=== PATIENT | male | born 1955 | race Caucasian/White ===

== ENCOUNTER → 2017-09-01 08:37 | Outpatient (CLI) | payer OTHER, SELFPAY ==
[2017-09-01 08:43] LABS: Bacteria 0 SEEN /hpf (None Seen); Mucous, Urine 0 SEEN /hpf (<or=2+)
[2017-09-01 10:07] LABS: Absolute Lymphocyte Count 1.56 X10^3/ul (0.83-4.51); Absolute Neutrophil Count 2.9 X10^3/uL (2.0-7.7); Basophil# 0.02 X10^3/uL; Basophil% 0.4 % (0-1); Eosinophil# 0.25 X10^3/uL; Eosinophils% 4.5 % (0-5); Hematocrit 45.4 % (40-54); Hemoglobin 15.1 g/dl (13.0-16.5); Lymphocyte # 1.56 X10^3/ul (4.0); Lymphocyte % 28.2 % (19-41); Mean Corp Hgb Conc 33.3 g/gl (32-36); Mean Corpuscular Volume 90.3 fL (80-94); Mean Platelet Vol. 10.3 fl (6.2-12.0); Monocyte# 0.81 X10^3/uL; Monocyte% 14.6 % (0-10); Neutrophil # 2.89 X10^3/uL (2.7-7.7); Neutrophil % 52.1 % (47-70); Platelet Count 228 K/mm3 (150-450); RBC Distribution Width CV 12.7 % (11.6-14.6); RBC Distribution Width SD 41.7 fl (35.1-43.9); Red Blood Count 5.03 M/mm3 (4.6-6.2); White Blood Count 5.5 K/mm3 (4.4-11.0)
[2017-09-01 10:08] LABS: POSITIVE COUNT NO; POSITIVE DIFFERENTIAL NO; POSITIVE MORPHOLOGY NO
[2017-09-01 10:13] LABS: Color, Urine Yellow (Yellow); Glucose, Dipstick Normal (Normal); Ketone-Dipstick Negative (Negative); Leukocyte Esterase-Dipstick 25 /ul (Negative); Nitrite-Dipstick Negative (Negative); Occult Blood-Urine 25 /ul (Negative); Protein-Dipstick Negative (Negative); Urine Bilirubin Dipstick Negative (Negative); Urine Clarity Clear (Clear); Urine Urobilinogen Normal (Normal)
[2017-09-01 10:20] LABS: Red Blood Cells-Urine 0-5 SEEN /hpf (0-5); Squamous Epithelial Cells - UA 0-5 SEEN /hpf (0-5); White Blood Cells 0-5 SEEN /hpf (0-5)
[2017-09-01 10:46] LABS: AST(SGOT) 35 U/L (15-37); Alanine Aminotransfer ALT/SGPT 49 U/L (16-61); Albumin, Serum 3.7 g/dL (3.2-5.0); Alkaline Phosphatase 80 U/L (45-117); Anion Gap 7 (5-15); BUN 20 mg/dL (7-18); BUN/Creat Ratio 16.7 RATIO (10-20); Calcium,Total 8.5 mg/dL (8.5-10.1); Chloride 106 mmol/L (98-107); Cholesterol 209 mg/dL (200); EST Glomerular Filtration Rate 66 mL/min (>60); Est Glom Filt Rate - Afr Amer 79 mL/min (>60); Globulin 3.8 g/dL (2.2-4.2); Glucose 111 mg/dL (74-106); High Density Lipoprotein 43 mg/dL; PSA,Total - Annual Screen 2.06 ng/mL (0.00-4.00); Protein, Total 7.5 g/dL (6.4-8.2); Sodium Level 140 mmol/L (136-145); Thyroid Stim Hormone (TSH) 1.55 uIU/mL (0.358-3.74); Triglycerides 74 mg/dL; Very Low Density Lipoprotein 15 mg/dL (5-40)
[2017-09-01 16:23] LABS: Hemoglobin A1c 5.3 % (4.2-6.3)
== END ==
PROVIDERS: Family Provider Family Medicine; PCP Family Medicine; Visit Provider Family Medicine
DX: Z00.00 Encounter for general adult medical examination without abnormal findings (principal); Z12.5 Encounter for screening for malignant neoplasm of prostate
CPT/HCPCS: 36415; 80053; 80061; 81001; 83036; 84153; 84443; 85025; G0103

== ENCOUNTER → 2017-11-02 08:19 | Outpatient (CLI) | payer OTHER, SELFPAY ==
--- NOTE | 2017-11-02 08:28 | RAD_ITS ---
STUDY: X-RAY - RIGHT HAND REASON FOR EXAM: Male, 62 years old. Pain. No known injury. TECHNIQUE: 3 view(s) of the hand. COMPARISON: None. FINDINGS: Normal radiocarpal articulation. Normal distal radioulnar joint. Normal visualized carpal bones. Normal carpal articulations Normal carpometacarpal articulation of the thumb. Normal second through fifth carpometacarpal joints. Normal metacarpi. Normal metacarpophalangeal joint of the thumb. Normal interphalangeal joint of the thumb. Normal proximal and distal phalanges of the thumb. Normal metacarpophalangeal joints of the second through fifth fingers. Normal proximal and distal interphalangeal joints of the second through fifth fingers. Normal phalanges of the second through fifth fingers. Soft tissue swelling. RAD/Hand Min 3 Views IMPRESSION: Soft tissue swelling. Electronically Signed: Juan Miguel Carr MD at 15:55 EDT Tel [phone], Service support ,
--- NOTE | 2017-11-02 08:28 | RAD_ITS ---
STUDY: X-RAY - LUMBAR SPINE REASON FOR EXAM: Male, 62 years old. Low back pain. TECHNIQUE: 5 view(s) of the lumbar spine were obtained including oblique views. COMPARISON: None FINDINGS: Normal lumbar lordosis. There is a mild dextroscoliosis of the lumbar spine. There is a normal alignment of the vertebrae. There is multilevel endplate spondylosis of the lumbar vertebrae. There is multi-level degenerative disc disease with multi-level disc space narrowing. The soft tissue structures are unremarkable. RAD/L/S Spine Min 4 Views IMPRESSION: Degenerative changes of the spine, as detailed above. Electronically Signed: Juan Miguel Carr MD at 16:02 EDT Tel [phone], Service support ,
--- NOTE | 2017-11-02 08:28 | RAD_ITS ---
STUDY: X-RAY - SACROILIAC JOINTS REASON FOR EXAM: Male, 62 years old. Low back pain. TECHNIQUE: 3 view(s) of the sacroiliac joints were obtained. COMPARISON: None. FINDINGS: Normal bilateral sacroiliac joints. Normal visualized sacral ala and sacrum. Normal visualized iliac bones. There are multiple calcified phleboliths. RAD/S-I Jts 3 or More Views IMPRESSION: Normal x-ray examination of the bilateral sacroiliac joints. Electronically Signed: Juan Miguel Carr MD at 15:55 EDT Tel [phone], Service support ,
--- NOTE | 2017-11-02 08:28 | RAD_ITS ---
STUDY: X-RAY - CERVICAL SPINE REASON FOR EXAM: Male, 62 years old. Chronic neck pain. TECHNIQUE: 5 view(s) of the cervical spine were obtained including oblique views. COMPARISON: None FINDINGS: Normal anterior atlantoaxial articulation. Normal odontoid process. Normal cervical lordosis. Disc space narrowing and spondylosis at the C5-C6 and C6-C7 levels. Normal visualized intervertebral neuroforamina. The soft tissue structures are unremarkable. RAD/Cerv Spine 4 or 5 Views IMPRESSION: Disc space narrowing and spondylosis at the C5-C6 and C6-C7 levels. Electronically Signed: Juan Miguel Carr MD at 16:01 EDT Tel [phone], Service support ,
== END ==
PROVIDERS: Family Provider Family Medicine; PCP Family Medicine; Visit Provider Family Medicine
DX: M79.643 Pain in unspecified hand (principal); M50.30 Other cervical disc degeneration, unspecified cervical region; M51.37 Other intervertebral disc degeneration, lumbosacral region
CPT/HCPCS: 72050; 72110; 72202; 73130

== ENCOUNTER → 2018-01-10 08:16 | Outpatient (CLI) | payer OTHER, SELFPAY ==
[2018-01-10 10:44] LABS: Cholesterol 226 mg/dL (200); High Density Lipoprotein 44 mg/dL; Triglycerides 56 mg/dL; Very Low Density Lipoprotein 11 mg/dL (5-40)
== END ==
PROVIDERS: Family Provider Family Medicine; PCP Family Medicine; Visit Provider Family Medicine
DX: E78.00 Pure hypercholesterolemia, unspecified (principal)
CPT/HCPCS: 36415; 80061

== ENCOUNTER → 2018-09-06 08:01 | Outpatient (CLI) | payer OTHER, SELFPAY ==
[2018-09-06 10:11] LABS: Absolute Lymphocyte Count 1.53 X10^3/ul (0.83-4.51); Absolute Neutrophil Count 3.1 X10^3/uL (2.0-7.7); Basophil# 0.04 X10^3/uL; Basophil% 0.7 % (0-1); Eosinophils% 3.6 % (0-5); Hematocrit 47.8 % (40-54); Hemoglobin 15.6 g/dl (13.0-16.5); Lymphocyte # 1.53 X10^3/ul (4.0); Lymphocyte % 27.3 % (19-41); Mean Corp Hgb Conc 32.6 g/gl (32-36); Mean Corpuscular Hgb 29.8 pg (27.0-32.0); Mean Corpuscular Volume 91.2 fL (80-94); Mean Platelet Vol. 10.5 fl (6.2-12.0); Monocyte# 0.68 X10^3/uL; Monocyte% 12.1 % (0-10); Neutrophil # 3.14 X10^3/uL (2.7-7.7); Neutrophil % 56.1 % (47-70); Platelet Count 255 K/mm3 (150-450); RBC Distribution Width CV 12.5 % (11.6-14.6); RBC Distribution Width SD 41.4 fl (35.1-43.9); Red Blood Count 5.24 M/mm3 (4.6-6.2); White Blood Count 5.6 K/mm3 (4.4-11.0)
[2018-09-06 10:13] LABS: POSITIVE COUNT NO; POSITIVE DIFFERENTIAL NO; POSITIVE MORPHOLOGY NO
[2018-09-06 10:56] LABS: ALB/GLOB Ratio 1.2 RATIO (0.9-2.4); AST(SGOT) 42 U/L (15-37); Alanine Aminotransfer ALT/SGPT 45 U/L (16-61); Albumin, Serum 4.1 g/dL (3.2-5.0); Alkaline Phosphatase 87 U/L (45-117); Anion Gap 7 (5-15); BUN 13 mg/dL (7-18); BUN/Creat Ratio 9.8 RATIO (10-20); Calcium,Total 8.9 mg/dL (8.5-10.1); Chloride 104 mmol/L (98-107); Cholesterol 231 mg/dL (200); Creatinine, Serum 1.33 mg/dL (0.70-1.30); EST Glomerular Filtration Rate 58 mL/min (>60); Est Glom Filt Rate - Afr Amer 70 mL/min (>60); Globulin 3.5 g/dL (2.2-4.2); Glucose 93 mg/dL (74-106); High Density Lipoprotein 48 mg/dL; PSA,Total - Annual Screen 3.89 ng/mL (0.00-4.00); Potassium 4.4 mmol/L (3.5-5.1); Protein, Total 7.6 g/dL (6.4-8.2); Sodium Level 140 mmol/L (136-145); Thyroid Stim Hormone (TSH) 1.51 uIU/mL (0.358-3.74); Triglycerides 63 mg/dL; Very Low Density Lipoprotein 13 mg/dL (5-40)
== END ==
PROVIDERS: Family Provider Family Medicine; PCP Family Medicine; Referring Provider Family Medicine; Visit Provider Family Medicine
DX: Z00.00 Encounter for general adult medical examination without abnormal findings (principal); Z12.5 Encounter for screening for malignant neoplasm of prostate
CPT/HCPCS: 36415; 80053; 80061; 84153; 84443; 85025; G0103

== ENCOUNTER → 2018-09-12 08:05 | Outpatient (CLI) | payer OTHER, SELFPAY ==
[2018-09-12 11:05] LABS: AST(SGOT) 57 U/L (15-37); Alanine Aminotransfer ALT/SGPT 45 U/L (16-61); Albumin, Serum 4.1 g/dL (3.2-5.0); Alkaline Phosphatase 90 U/L (45-117); Anion Gap 6 (5-15); BUN 14 mg/dL (7-18); BUN/Creat Ratio 11.4 RATIO (10-20); Bilirubin, Direct 0.22 mg/dL (0.00-0.30); Calcium,Total 8.6 mg/dL (8.5-10.1); Chloride 107 mmol/L (98-107); Creatinine, Serum 1.23 mg/dL (0.70-1.30); EST Glomerular Filtration Rate 64 mL/min (>60); Est Glom Filt Rate - Afr Amer 77 mL/min (>60); Globulin 3.2 g/dL (2.2-4.2); Glucose 85 mg/dL (74-106); Potassium 4.2 mmol/L (3.5-5.1); Protein, Total 7.3 g/dL (6.4-8.2); Sodium Level 140 mmol/L (136-145)
== END ==
PROVIDERS: Family Provider Family Medicine; PCP Family Medicine; Referring Provider Family Medicine; Visit Provider Family Medicine
DX: R94.4 Abnormal results of kidney function studies (principal)
CPT/HCPCS: 36415; 80048; 80076

== ENCOUNTER → 2019-09-07 08:56 | Outpatient (CLI) | payer SELFPAY ==
[2019-09-07 10:20] LABS: Anion Gap 3 (5-15); BUN 17 mg/dL (7-18); BUN/Creat Ratio 13.2 RATIO (10-20); Calcium,Total 9.1 mg/dL (8.5-10.1); Chloride 104 mmol/L (98-107); Creatinine, Serum 1.29 mg/dL (0.70-1.30); EST Glomerular Filtration Rate 60 mL/min (>60); Est Glom Filt Rate - Afr Amer 73 mL/min (>60); Glucose 96 mg/dL (74-106); Potassium 4.3 mmol/L (3.5-5.1); Sodium Level 137 mmol/L (136-145)
== END ==
PROVIDERS: PCP Family Medicine; Referring Provider Family Medicine; Visit Provider Family Medicine
DX: Z00.00 Encounter for general adult medical examination without abnormal findings (principal)
CPT/HCPCS: 36415; 80048

== ENCOUNTER → 2020-09-09 08:55 | Outpatient (CLI) | payer SELFPAY ==
[2020-09-09 10:34] LABS: AST(SGOT) 36 U/L (15-37); Alanine Aminotransfer ALT/SGPT 43 U/L (16-61); Albumin, Serum 3.8 g/dL (3.2-5.0); Alkaline Phosphatase 87 U/L (45-117); Anion Gap 4 (5-15); BUN 16 mg/dL (7-18); BUN/Creat Ratio 11.3 RATIO (10-20); Calcium,Total 9.1 mg/dL (8.5-10.1); Chloride 103 mmol/L (98-107); Cholesterol 233 mg/dL (200); Creatinine, Serum 1.42 mg/dL (0.70-1.30); EST Glomerular Filtration Rate 54 mL/min (>60); Est Glom Filt Rate - Afr Amer 65 mL/min (>60); Globulin 3.8 g/dL (2.2-4.2); Glucose 101 mg/dL (74-106); High Density Lipoprotein 47 mg/dL; Potassium 4.4 mmol/L (3.5-5.1); Protein, Total 7.6 g/dL (6.4-8.2); Sodium Level 138 mmol/L (136-145); Triglycerides 61 mg/dL; Very Low Density Lipoprotein 12 mg/dL (5-40)
[2020-09-09 10:39] LABS: Bilirubin, Direct 0.22 mg/dL (0.00-0.30); Indirect Bilirubin 0.78 mg/dL (0.00-1.00)
== END ==
PROVIDERS: PCP Family Medicine; Visit Provider Family Medicine
DX: E80.6 Other disorders of bilirubin metabolism (principal); E78.00 Pure hypercholesterolemia, unspecified
CPT/HCPCS: 36415; 80053; 80061; 82247; 82248

== ENCOUNTER → 2020-12-24 08:28 | Outpatient (CLI) | payer SELFPAY ==
[2020-12-24 10:29] LABS: AST(SGOT) 47 U/L (15-37); Alanine Aminotransfer ALT/SGPT 54 U/L (16-61); Albumin, Serum 3.9 g/dL (3.2-5.0); Alkaline Phosphatase 79 U/L (45-117); Anion Gap 4 (5-15); BUN 19 mg/dL (7-18); BUN/Creat Ratio 14.2 RATIO (10-20); Calcium,Total 8.9 mg/dL (8.5-10.1); Chloride 107 mmol/L (98-107); Creatinine, Serum 1.34 mg/dL (0.70-1.30); EST Glomerular Filtration Rate 57 mL/min (>60); Est Glom Filt Rate - Afr Amer 69 mL/min (>60); Globulin 3.8 g/dL (2.2-4.2); Glucose 92 mg/dL (74-106); Potassium 4.4 mmol/L (3.5-5.1); Protein, Total 7.7 g/dL (6.4-8.2); Sodium Level 138 mmol/L (136-145)
== END ==
PROVIDERS: PCP Family Medicine; Visit Provider Family Medicine
DX: R94.4 Abnormal results of kidney function studies (principal)
CPT/HCPCS: 36415; 80053

== ENCOUNTER → 2021-05-13 08:02 | Outpatient (CLI) | payer SELFPAY ==
[2021-05-13 10:43] LABS: Cholesterol 154 mg/dL (200); High Density Lipoprotein 42 mg/dL; Triglycerides 53 mg/dL; Very Low Density Lipoprotein 11 mg/dL (5-40)
== END ==
PROVIDERS: PCP Family Medicine; Referring Provider Family Medicine; Visit Provider Family Medicine
DX: E78.00 Pure hypercholesterolemia, unspecified (principal)
CPT/HCPCS: 36415; 80061

== ENCOUNTER 2021-09-10 09:15 | Outpatient (CLI) | payer SELFPAY ==
[2021-09-10 11:02] LABS: AST(SGOT) 37 U/L (15-37); Alanine Aminotransfer ALT/SGPT 49 U/L (16-61); Albumin, Serum 3.9 g/dL (3.2-5.0); Alkaline Phosphatase 83 U/L (45-117); Anion Gap 4 (5-15); BUN 16 mg/dL (7-18); BUN/Creat Ratio 11.1 RATIO (10-20); Calcium,Total 9.2 mg/dL (8.5-10.1); Chloride 106 mmol/L (98-107); Cholesterol 154 mg/dL (200); Creatinine, Serum 1.44 mg/dL (0.70-1.30); EST Glomerular Filtration Rate 53 mL/min (>60); Est Glom Filt Rate - Afr Amer 64 mL/min (>60); Globulin 3.8 g/dL (2.2-4.2); Glucose 105 mg/dL (74-106); High Density Lipoprotein 42 mg/dL; PSA,Total - Annual Screen 2.98 ng/mL (0.00-4.00); Potassium 4.5 mmol/L (3.5-5.1); Protein, Total 7.7 g/dL (6.4-8.2); Sodium Level 137 mmol/L (136-145); Triglycerides 64 mg/dL; Very Low Density Lipoprotein 13 mg/dL (5-40)
== END 2021-09-10 23:59 | disposition home or self-care (01) ==
LOC: MFPLAB 09:15
PROVIDERS: PCP Family Medicine; Referring Provider Family Medicine; Visit Provider Family Medicine
DX: E80.6 Other disorders of bilirubin metabolism (principal); E78.00 Pure hypercholesterolemia, unspecified; Z12.5 Encounter for screening for malignant neoplasm of prostate
CPT/HCPCS: 36415; 80048; 80061; 80076; 84153; G0103

== ENCOUNTER → 2022-03-10 | Outpatient (CLI) | payer SELFPAY ==
[2022-03-10 08:54] LABS: Mucous, Urine 0 SEEN /hpf (<or=2+)
[2022-03-10 10:27] LABS: Color, Urine Yellow (Yellow); Glucose, Dipstick Normal (Normal); Ketone-Dipstick 5 mg/dl (Negative); Leukocyte Esterase-Dipstick 25 /ul (Negative); Nitrite-Dipstick Negative (Negative); Occult Blood-Urine 10 /ul (Negative); Protein-Dipstick Negative (Negative); Urine Bilirubin Dipstick Negative (Negative); Urine Clarity Clear (Clear); Urine Urobilinogen 1 mg/dl (Normal)
[2022-03-10 10:37] LABS: Absolute Lymphocyte Count 1.65 X10^3/uL (0.83-4.51); Absolute Neutrophil Count 3.7 X10^3/uL (2.0-7.7); Basophil# 0.05 X10^3/uL; Basophil% 0.8 % (0-1); Eosinophil# 0.18 X10^3/uL; Eosinophils% 2.8 % (0-5); Hematocrit 43.7 % (40-54); Hemoglobin 14.1 g/dL (13.0-16.5); Lymphocyte # 1.65 X10^3/ul (0.83-4.51); Lymphocyte % 25.6 % (19-41); Mean Corp Hgb Conc 32.3 g/dL (32-36); Mean Corpuscular Hgb 29.9 pg (27.0-32.0); Mean Corpuscular Volume 92.8 fL (80-94); Mean Platelet Vol. 10.4 fl (6.2-12.0); Monocyte# 0.83 X10^3/uL; Monocyte% 12.9 % (0-10); NRBC Flagged by Analyzer 0 % (0-5); Neutrophil # 3.71 X10^3/uL (2.7-7.7); Neutrophil % 57.6 % (47-70); Platelet Count 218 K/mm3 (150-450); RBC Distribution Width CV 12.3 % (11.6-14.6); RBC Distribution Width SD 42.1 fl (35.1-43.9); Red Blood Count 4.71 M/mm3 (4.6-6.2); White Blood Count 6.4 K/mm3 (4.4-11.0)
[2022-03-10 10:38] LABS: Protein, Urine (Random) 18.2 mg/dL (<11.9); Protein:Creat Ratio 79 mg/g CRE (0-200)
[2022-03-10 10:41] LABS: Bacteria 1+ /hpf (None Seen); Red Blood Cells-Urine 0-5 SEEN /hpf (0-5); Squamous Epithelial Cells - UA 0-5 SEEN /hpf (0-5); White Blood Cells 0-5 SEEN /hpf (0-5)
[2022-03-10 11:00] LABS: PTHIN 42.9 pg/mL (18.4-80.1)
[2022-03-10 11:08] LABS: AST(SGOT) 36 U/L (15-37); Alanine Aminotransfer ALT/SGPT 41 U/L (16-61); Albumin, Serum 3.6 g/dL (3.2-5.0); Alkaline Phosphatase 72 U/L (45-117); Anion Gap 5 (5-15); BUN 17 mg/dL (7-18); BUN/Creat Ratio 13.7 RATIO (10-20); Calcium,Total 8.7 mg/dL (8.5-10.1); Chloride 107 mmol/L (98-107); Cholesterol 123 mg/dL (200); Creatinine, Serum 1.24 mg/dL (0.70-1.30); EST Glomerular Filtration Rate 62 mL/min (>60); Est Glom Filt Rate - Afr Amer 75 mL/min (>60); Globulin 3.5 g/dL (2.2-4.2); Glucose 100 mg/dL (74-106); High Density Lipoprotein 41 mg/dL; Protein, Total 7.1 g/dL (6.4-8.2); Sodium Level 140 mmol/L (136-145); Triglycerides 52 mg/dL; Very Low Density Lipoprotein 10 mg/dL (5-40)
== END | disposition home or self-care (01) ==
LOC: MFPLAB 08:48
PROVIDERS: PCP Family Medicine; Referring Provider Family Medicine; Visit Provider Family Medicine
DX: N18.30 Chronic kidney disease, stage 3 unspecified (principal); E78.00 Pure hypercholesterolemia, unspecified
CPT/HCPCS: 36415; 80053; 80061; 81001; 82570; 83970; 84100; 84156; 85025

== ENCOUNTER → 2022-07-13 | Outpatient (CLI) | payer SELFPAY ==
[2022-07-13 10:10] LABS: Absolute Lymphocyte Count 1.71 X10^3/uL (0.83-4.51); Absolute Neutrophil Count 3.7 X10^3/uL (2.0-7.7); Basophil# 0.05 X10^3/uL; Basophil% 0.8 % (0-1); Eosinophil# 0.19 X10^3/uL; Eosinophils% 2.9 % (0-5); Hematocrit 47.4 % (40-54); Hemoglobin 15.7 g/dL (13.0-16.5); Lymphocyte # 1.71 X10^3/ul (0.83-4.51); Lymphocyte % 26.3 % (19-41); Mean Corp Hgb Conc 33.1 g/dL (32-36); Mean Corpuscular Volume 90.6 fL (80-94); Mean Platelet Vol. 10.1 fl (6.2-12.0); Monocyte% 12.3 % (0-10); NRBC Flagged by Analyzer 0 % (0-5); Neutrophil # 3.73 X10^3/uL (2.7-7.7); Neutrophil % 57.4 % (47-70); Platelet Count 225 K/mm3 (150-450); RBC Distribution Width CV 12.2 % (11.6-14.6); RBC Distribution Width SD 40.4 fl (35.1-43.9); Red Blood Count 5.23 M/mm3 (4.6-6.2); White Blood Count 6.5 K/mm3 (4.4-11.0)
[2022-07-13 10:36] LABS: AST(SGOT) 36 U/L (15-37); Alanine Aminotransfer ALT/SGPT 48 U/L (16-61); Albumin, Serum 3.8 g/dL (3.2-5.0); Alkaline Phosphatase 73 U/L (45-117); Anion Gap 3 (5-15); BUN 17 mg/dL (7-18); Calcium,Total 9.1 mg/dL (8.5-10.1); Chloride 104 mmol/L (98-107); Cholesterol 152 mg/dL (200); Creatinine, Serum 1.31 mg/dL (0.70-1.30); EST Glomerular Filtration Rate 58 mL/min (>60); Est Glom Filt Rate - Afr Amer 71 mL/min (>60); Globulin 3.7 g/dL (2.2-4.2); Glucose 93 mg/dL (74-106); High Density Lipoprotein 47 mg/dL; Phosphorus 2.4 mg/dL (2.5-4.9); Potassium 4.4 mmol/L (3.5-5.1); Protein, Total 7.5 g/dL (6.4-8.2); Sodium Level 139 mmol/L (136-145); Triglycerides 64 mg/dL; Very Low Density Lipoprotein 13 mg/dL (5-40)
[2022-07-13 10:38] LABS: Vitamin D,25 Hydroxy 37.4 ng/mL
[2022-07-13 10:40] LABS: PTHIN 45.2 pg/mL (18.4-80.1)
== END | disposition home or self-care (01) ==
PROVIDERS: PCP Family Medicine; Referring Provider Family Medicine; Visit Provider Family Medicine
DX: N18.30 Chronic kidney disease, stage 3 unspecified (principal); E78.00 Pure hypercholesterolemia, unspecified
CPT/HCPCS: 36415; 80053; 80061; 82306; 83970; 84100; 85025

== ENCOUNTER 2022-10-19 02:47 | Emergency (ER) | payer MEDICARE, SELFPAY ==
[2022-10-19 02:48] VITALS: PULSE 65; RESP 16; TEMP 36.5; O2SAT 100; BMI 29.3
[2022-10-19 02:51] VITALS: BP 192/109; PULSE 60; RESP 16; TEMP 36.5; O2SAT 100
--- NOTE | 2022-10-19 03:18 | CT_ITS ---
INDICATION: ? Dissection EXAMINATION: CT CHEST, ABDOMEN AND PELVIS WITH CONTRAST - CTA Chest and CTA Abdomen and Pelvis W/ Contrast Injection (and W/O Contrast Images if performed) TECHNIQUE: Helically acquired axial images were obtained of the chest, abdomen, and pelvis with sagittal and coronal reconstructed images. Individualized dose optimization techniques were used for this CT. IV contrast dosage and agent: 100 mL of Isovue-370. Oral contrast: None. COMPARISON: None. FINDINGS: ---Chest: LUNGS, PLEURA AND LARGE AIRWAYS: No consolidation or edema. No pulmonary nodule. No pleural effusion. No pneumothorax. THYROID: Unremarkable. HEART AND PERICARDIUM: Heart is unremarkable. No pericardial effusion. No evidence of coronary artery calcification. MEDIASTINUM AND TARA: No mediastinal or hilar adenopathy. Esophagus is unremarkable. No hiatal hernia. VESSELS: No thoracic aortic aneurysm or dissection. No obvious central pulmonary embolism although this study was not performed with pulmonary embolism protocol. BONES: No acute abnormality. ---Abdomen/Pelvis: VESSELS: No abdominal aortic aneurysm or dissection. LIVER: No evidence of a mass. No intrahepatic or extrahepatic biliary duct dilation. GALLBLADDER: Calcified stones. No evidence of cholecystitis. PANCREAS: No focal solid or cystic mass. No evidence of pancreatitis. SPLEEN: Normal. ADRENAL GLANDS: Normal. KIDNEYS AND URETERS: No urinary tract stone. No hydronephrosis or hydroureter. No significant asymmetric perinephric stranding. Simple left renal cyst with no follow-up recommended. URINARY BLADDER: Unremarkable. BOWEL: No evidence of diverticulosis or diverticulitis. Appendix appears normal. No evidence of bowel obstruction. REPRODUCTIVE ORGANS: No evidence of a pelvic mass. PERITONEUM: No intraabdominal free fluid or free air. LYMPH NODES: No pathologically enlarged mesenteric or retroperitoneal lymph nodes. ABDOMINAL WALL: No abdominal or pelvic wall hernia. BONES: No acute abnormality. CT/CTA Chst, Abd, Pel W and/or WO IMPRESSION: 1. No thoracic or abdominal aortic aneurysm or dissection. 2. No evidence of acute cardiopulmonary disease. 3. No acute intra-abdominal abnormality. 4. Cholelithiasis with no evidence of cholecystitis. Electronically Signed: Woody Mccann DO at 4:10 EDT ,
[2022-10-19] MEDS: 0.9% Normal Saline 1,000 ML 999 ML IV (03:27)
[2022-10-19] MEDS: Morphine 4 MG/ML Syringe IV (03:29)
[2022-10-19] MEDS: Ondansetron 4 MG/2 ML Vial IV (03:29)
[2022-10-19 03:34] LABS: Absolute Lymphocyte Count 2.02 X10^3/uL (0.83-4.51); Absolute Neutrophil Count 6.1 X10^3/uL (2.0-7.7); Basophil# 0.07 X10^3/uL; Basophil% 0.7 % (0-1); Eosinophil# 0.25 X10^3/uL; Eosinophils% 2.6 % (0-5); Hematocrit 46.8 % (40-54); Hemoglobin 15.5 g/dL (13.0-16.5); Lymphocyte # 2.02 X10^3/ul (0.83-4.51); Lymphocyte % 21.3 % (19-41); Mean Corp Hgb Conc 33.1 g/dL (32-36); Mean Corpuscular Volume 90.7 fL (80-94); Mean Platelet Vol. 9.8 fl (6.2-12.0); Monocyte# 1.04 X10^3/uL; NRBC Flagged by Analyzer 0 % (0-5); Neutrophil # 6.07 X10^3/uL (2.7-7.7); Platelet Count 236 K/mm3 (150-450); RBC Distribution Width CV 11.9 % (11.6-14.6); RBC Distribution Width SD 39.8 fl (35.1-43.9); Red Blood Count 5.16 M/mm3 (4.6-6.2); White Blood Count 9.5 K/mm3 (4.4-11.0)
[2022-10-19 03:52] LABS: AST(SGOT) 34 U/L (15-37); Alanine Aminotransfer ALT/SGPT 45 U/L (16-61); Alkaline Phosphatase 80 U/L (45-117); Anion Gap 6 (5-15); BUN 20 mg/dL (7-18); BUN/Creat Ratio 15.2 RATIO (10-20); Bilirubin, Direct 0.26 mg/dL (0.00-0.30); Calcium,Total 9.2 mg/dL (8.5-10.1); Chloride 106 mmol/L (98-107); Creatinine, Serum 1.32 mg/dL (0.70-1.30); EST Glomerular Filtration Rate 58 mL/min (>60); Est Glom Filt Rate - Afr Amer 70 mL/min (>60); Estimated Creatinine Clearance 57.61 ml/min; Globulin 3.7 g/dL (2.2-4.2); Glucose 141 mg/dL (74-106); Lipase 52 U/L (13-75); Potassium 3.8 mmol/L (3.5-5.1); Protein, Total 7.7 g/dL (6.4-8.2); Sodium Level 138 mmol/L (136-145)
[2022-10-19 04:04] LABS: Lactic Acid 2.3 mmol/L (0.4-1.9)
[2022-10-19 04:04] LABS: Partial Thromboplast Time 28.5 Seconds (24.1-36.2)
--- NOTE | 2022-10-19 04:48 | EX.ED.DYSGE1 ---
HPI History of Present Illness Chief Complaint: Abd Pain Narrative Narrative: Patient is a 67-year-old male with past medical history of hyperlipidemia and osteoarthritis. He states that he noticed some pain in his midepigastric abdomen beginning around 11 PM. He states he has had pain like this before but it has resolved after 30 minutes to an hour and this pain seems to worsen and has persisted for multiple hours. He states he is slightly nauseous secondary to the pain but denies any vomiting. He denies any fevers or chills diarrhea or dysuria or hematuria. He denies any history of pancreatic or gallbladder issues and states that there is no history of alcohol abuse. However as he has had persistent pain that is not resolving like it has in the past he presents for evaluation [facility] Home Medications atorvastatin 10 mg tablet 10 mg PO DAILY 10/19/22 [History Last Taken Unknown] hydrocodone-acetaminophen 5-325mg 5mg-325mg 1 tab PO Q6H PRN PRN Pain 3 days #12 TABLETS 10/19/22 [Rx Last Taken Unknown] meloxicam 15 mg tablet 15 mg PO DAILY 10/19/22 [History Last Taken Unknown] Allergy/AdvReac Type Severity Reaction Status Date / Time No Known Allergies Allergy Verified 10/19/22 02:48 Social History Smoking Status: Never smoker [facility] ED Constitutional Constitutional ED: Denies chills or fever(s) ENT ENT ED: Denies sore throat Cardiovascular Cardiovascular: Denies chest pain Respiratory/Chest Respiratory/Chest: Denies cough or dyspnea Gastrointestinal Gastrointestinal: Reports abdominal pain and nausea; Denies diarrhea or vomiting Genitourinary Genitourinary ED: Denies dysuria or hematuria Musculoskeletal Musculoskeletal: Denies back pain or myalgias Integumentary Denies rash Neurologic Neurologic: Denies headache(s) Hematologic/Lymphatic Hematologic/Lymphatic: Denies easy bleeding or easy bruising EXAM Physical Exam Const Vital Signs: 10/19/22 02:48 10/19/22 02:51 Temperature 97.7 F L 97.7 F L Temperature Source Temporal Temporal Pulse Rate 65 60 Respiratory Rate 16 16 Blood Pressure 192/109 H Blood Pressure Mean 136 Pulse Ox 100 100 Oxygen Delivery Method Room Air Room Air Positive well nourished and well developed General Appearance ED: well developed HEENT Reports moist mucous membranes Eyes PERRL and EOMs intact bilaterally General Eye ED: Negative for scleral icterus Neck supple Resp normal respiratory effort and clear to auscultation bilaterally Cardio regular rate and regular rhythm Rate: other Other Details: Radial pulses are plus 2 out of 4 bilaterally are equal and symmetric GI non-tender and non-distended GI Narrative: Abdomen is soft and nondistended with normal active bowel sounds. Patient reports pain in the midepigastric region but I cannot elicit pain on palpation indicating patient has pain out of proportion. There is no pulsatile mass or fluid wave rigidity or guarding noted. Auscultation: normoactive bowel sounds Palpation: soft Back/Spine no CVA tenderness Extremity normal to inspection Neuro oriented x3 and CN's II-XII intact bilaterally Sensorium / Orientation: alert Psych mental status grossly normal Skin no rashes or lesions noted General Skin Exam: Negative for jaundice MDM MDM MDM Narrative Medical decision making narrative: Patient presented to the ER hypertensive but otherwise with stable vitals. He reported pain in the midepigastric region of his abdomen that I cannot reproduce on exam indicating PAD proportion which could indicate ischemic changes to his intestine or even possibly a dissection and secondary to this a CTA of the chest abdomen pelvis was obtained. Differential diagnosis includes biliary colic pancreatitis colitis/diverticulitis ischemic colitis SMA occlusion aortic dissection or pulmonary emboli. The CTA revealed no acute findings other than gallstones without signs of acute cholecystitis. Lab work revealed no elevation to his liver enzymes and a normal lipase and otherwise no signs of acute kidney injury or electrolyte derangement. Patient was medicated and had resolution of his pain on reevaluation the abdomen remains soft and nonsurgical. Therefore at this time as arterial occlusion as well as dissection have been ruled out he has gallstones present on CT scan but negative Jimenez sign and normal liver enzymes I do not feel there is need for emergent ultrasound or surgical consultation. Patient be placed on pain medication given outpatient order to have his gallbladder ultrasound and is otherwise safe for discharge History & Record Review Discussion w/independent historian: Patient and Significant other Lab Data Attestation: I reviewed the patient's lab results. Labs: Laboratory Results - last 24 hr 10/19/22 10/19/22 10/19/22 02:50 02:50 02:50 WBC 9.5 RBC 5.16 Hgb 15.5 Hct 46.8 MCV 90.7 MCH 30.0 MCHC 33.1 RDW Std Deviation 39.8 RDW Coeff of Alicia 11.9 Plt Count 236 MPV 9.8 Immature Gran % (Auto) 0.400 Neut % (Auto) 64.0 Lymph % (Auto) 21.3 Simpson % (Auto) 11.0 H Eos % (Auto) 2.6 Baso % (Auto) 0.7 Absolute Neuts (auto) 6.1 Absolute Lymphs (auto) 2.02 Nucleated RBC % 0 PT 13.0 INR 1.0 APTT 28.5 Sodium 138 Potassium 3.8 Chloride 106 Carbon Dioxide 26.0 Anion Gap 6 BUN 20 H Creatinine 1.32 H Estim Creat Clear Calc 57.61 Est GFR (MDRD) Af Amer 70 Est GFR (MDRD) Non-Af 58 L BUN/Creatinine Ratio 15.2 Glucose 141 H Lactic Acid Calcium 9.2 Total Bilirubin 0.80 Direct Bilirubin 0.26 AST 34 ALT 45 Alkaline Phosphatase 80 Total Protein 7.7 Albumin 4.0 Globulin 3.7 Lipase 52 10/19/22 03:20 WBC RBC Hgb Hct MCV MCH MCHC RDW Std Deviation RDW Coeff of Alicia Plt Count MPV Immature Gran % (Auto) Neut % (Auto) Lymph % (Auto) Simpson % (Auto) Eos % (Auto) Baso % (Auto) Absolute Neuts (auto) Absolute Lymphs (auto) Nucleated RBC % PT INR APTT Sodium Potassium Chloride Carbon Dioxide Anion Gap BUN Creatinine Estim Creat Clear Calc Est GFR (MDRD) Af Amer Est GFR (MDRD) Non-Af BUN/Creatinine Ratio Glucose Lactic Acid 2.3 H* Calcium Total Bilirubin Direct Bilirubin AST ALT Alkaline Phosphatase Total Protein Albumin Globulin Lipase Radiography Diagnostic Testing: Clinical Impression(s) from Imaging Studies Chest/Abdomen/Pelvis CTA 10/19/22 03:18 IMPRESSION: 1. No thoracic or abdominal aortic aneurysm or dissection. 2. No evidence of acute cardiopulmonary disease. 3. No acute intra-abdominal abnormality. 4. Cholelithiasis with no evidence of cholecystitis. Electronically Signed: Woody Mccann DO at 4:10 EDT , Discharge Plan Triage Chief Complaint: Abd Pain ED Provider: Shen Pate Dx/Rx/DC Orders Clinical Impression: Abdominal pain, Cholelithiasis Instructions: Abdominal Pain, Treating Gallstones, Gallstones Dc Prescriptions: New hydrocodone-acetaminophen 5-325 mg tablet 1 tab PO Q6H PRN PRN (Reason: Pain) 3 Days Qty: 12 0RF No Action atorvastatin 10 mg tablet 10 mg PO DAILY Label Comments: TAKE 1 TABLET BY MOUTH NIGHTLY meloxicam 15 mg tablet 15 mg PO DAILY Label Comments: TAKE 1 TABLET DAILY NEEDED Primary Care Provider: Richard Mccall Referrals: Richard Mccall MD [Primary Care Provider] - Activity Restrictions/Additional Instructions: Please return to the hospital as an outpatient to have your gallbladder ultrasound performed and further assess the cause of your abdominal pain. Follow-up with your family doctor to discuss general surgery referral and referred to the ER should you have any further concerns Disposition Disposition: Home, Self Care Discharge Date/Time: 10/19/22 05:08
[2022-10-19 05:00] VITALS: BP 128/82; PULSE 60; RESP 16; TEMP 36.6; O2SAT 96
[2022-10-19 05:01] VITALS: BP 128/82; PULSE 60; RESP 16; TEMP 37.1; O2SAT 96
[2022-10-19 07:29] LABS: Reflex Lactate? Y
== END 2022-10-19 05:08 | disposition home or self-care (01) ==
PROVIDERS: Emergency Provider Emergency Medicine; PCP Family Medicine; Visit Provider Emergency Medicine
DX: K80.20 Calculus of gallbladder without cholecystitis without obstruction (principal); R10.13 Epigastric pain; E78.5 Hyperlipidemia, unspecified; Z79.899 Other long term (current) drug therapy
CPT/HCPCS: 71275; 74174; 80048; 80076; 83605; 83690; 85025; 85610; 85730; 96374; 96375; 99283; J7030; Q9967; A4216; J2405

== ENCOUNTER → 2022-10-21 | Outpatient (CLI) | payer MEDICARE, SELFPAY ==
--- NOTE | 2022-10-21 08:41 | US_ITS ---
STUDY: ABDOMINAL ULTRASOUND - RIGHT UPPER QUADRANT REASON FOR VISIT: Male, 67 years old abd pain TECHNIQUE: Ultrasound evaluation of the right upper quadrant was performed with real-time and static vitale-scale imaging. TECHNICAL QUALITY: Adequate. COMPARISON: None. FINDINGS: Liver: The liver measures 13.1 cm. There is a heterogeneous echogenicity of the liver. The bile ducts are within normal limits. There is hepatic color flow. The direction of portal flow is hepatopetal. There is no demonstrated mass lesion. Gallbladder: Normal distended gallbladder. The gallbladder wall is slightly thickened and measures 5 mm. There is a positive sonographic Jimenez''s sign. There is no pericholecystic fluid. There are multiple echogenic structures within the gallbladder, consistent with multiple gallstones. Sludge is seen within the gallbladder lumen as well. Common Bile Duct (C.B.D.): The common bile duct measures mm. Pancreas: There is nonvisualization of the pancreas due to overlying bowel gas. Right Kidney: Normal size of the right kidney. The right kidney measures 12.2 cm x 5.8 cm x 6.8 cm. Normal renal cortex. The right cortex measures 2.2 cm. There is no demonstrated renal mass or cyst. There is no right hydronephrosis. US/Gallbladder IMPRESSION: Mild degree of heterogeneous echotexture of the liver. Multiple gallstones with sludge in the gallbladder lumen. Mildly thickened gallbladder wall. Positive sonographic Jimenez sign. Electronically Signed: Juan Miguel Carr MD at 13:54 EDT ,
== END | disposition home or self-care (01) ==
LOC: US 08:40
PROVIDERS: PCP Family Medicine; Referring Provider Emergency Medicine; Visit Provider Emergency Medicine
DX: R10.9 Unspecified abdominal pain (principal)
CPT/HCPCS: 76705

== ENCOUNTER 2022-11-10 20:37 | Inpatient (IN) | payer MEDICARE, SELFPAY ==
[2022-11-10 20:38] VITALS: BP 160/90; PULSE 70; RESP 16; TEMP 36.7; O2SAT 95; BMI 29.9
[2022-11-10 21:31] LABS: Absolute Lymphocyte Count 0.98 X10^3/uL (0.83-4.51); Absolute Neutrophil Count 1.9 X10^3/uL (2.0-7.7); Basophil# 0.06 X10^3/uL; Basophil% 1.5 % (0-1); Eosinophil# 0.13 X10^3/uL; Eosinophils% 3.2 % (0-5); Hemoglobin 13.9 g/dL (13.0-16.5); Lymphocyte # 0.98 X10^3/ul (0.83-4.51); Mean Corp Hgb Conc 33.1 g/dL (32-36); Mean Corpuscular Hgb 29.8 pg (27.0-32.0); Mean Corpuscular Volume 90.1 fL (80-94); Mean Platelet Vol. 10.2 fl (6.2-12.0); Monocyte# 0.96 X10^3/uL; Monocyte% 23.5 % (0-10); NRBC Flagged by Analyzer 0 % (0-5); Neutrophil # 1.94 X10^3/uL (2.7-7.7); Neutrophil % 47.6 % (47-70); Platelet Count 205 K/mm3 (150-450); RBC Distribution Width CV 12.5 % (11.6-14.6); RBC Distribution Width SD 41.1 fl (35.1-43.9); Red Blood Count 4.66 M/mm3 (4.6-6.2); White Blood Count 4.1 K/mm3 (4.4-11.0)
[2022-11-10 21:41] LABS: Prothrombin Time (Protime)PT. 13.1 SECONDS (11.7-14.9)
[2022-11-10 21:48] LABS: ALB/GLOB Ratio 0.9 RATIO (0.9-2.4); AST(SGOT) 264 U/L (15-37); Alanine Aminotransfer ALT/SGPT 394 U/L (16-61); Albumin, Serum 3.5 g/dL (3.2-5.0); Alkaline Phosphatase 195 U/L (45-117); Anion Gap 6 (5-15); BUN 16 mg/dL (7-18); BUN/Creat Ratio 11.4 RATIO (10-20); Calcium,Total 8.8 mg/dL (8.5-10.1); Chloride 105 mmol/L (98-107); EST Glomerular Filtration Rate 54 mL/min (>60); Est Glom Filt Rate - Afr Amer 65 mL/min (>60); Estimated Creatinine Clearance 54.32 ml/min; Globulin 3.9 g/dL (2.2-4.2); Glucose 105 mg/dL (74-106); Lipase 65 U/L (13-75); Potassium 3.9 mmol/L (3.5-5.1); Protein, Total 7.4 g/dL (6.4-8.2); Sodium Level 139 mmol/L (136-145)
--- NOTE | 2022-11-10 21:56 | CT_ITS ---
We are attempting to reach an attending provider to discuss findings. An addendum with communication details will be sent when the communication is complete. EXAM: CT ABDOMEN AND PELVIS WITH INTRAVENOUS CONTRAST CLINICAL INDICATION: pain TECHNIQUE: Helically acquired images were obtained of the abdomen and pelvis with intravenous contrast. This CT exam was performed using one or more of the following dose reduction techniques: automated exposure control, adjustment of the mA and/or kV according to patient size, and/or use of iterative reconstruction technique. CONTRAST: IV 100mL Isovue-370 RADIATION DOSE: CTDIvol = 16.43 mGy, DLP = 1118.22 mGy-cm COMPARISON: October 19, 2022, report mentioned cholelithiasis. Ultrasound October 21, 2022 was positive for acute cholecystitis. FINDINGS: LOWER THORAX: Unremarkable. Lung bases are clear. No cardiomegaly. No significant pericardial effusion. ABDOMEN: LIVER: Unremarkable. Homogeneous. No focal mass. GALLBLADDER AND BILE DUCTS: There is cholelithiasis, multiple small dependent stones in the mildly distended gallbladder, and similar 4 mm borderline thickened anterior wall. No surrounding soft tissue stranding. Choledocholithiasis, and mildly larger common duct. PANCREAS: Unremarkable. No focal cystic or solid mass. SPLEEN: Unremarkable. Normal size without focal cystic or solid mass. ADRENALS: Unremarkable. No nodules. KIDNEYS AND URETERS: There is a stable left posterior renal cortical cyst, 1.2 cm x 0.9 cm. Normal renal size and position. No hydronephrosis. STOMACH AND BOWEL: There is moderate fluid and mild gas in the stomach. Mild prominent fluid in the small bowel. Moderate gas in much of the colon, moderate stool in the right colon. No stomach or bowel distention. No focal inflammatory change. PELVIS: APPENDIX: Normal appendix is seen on coronal images. BLADDER: Unremarkable. REPRODUCTIVE: Unremarkable as visualized. No mass. ABDOMEN and PELVIS: INTRAPERITONEAL SPACE: Unremarkable. No ascites or other fluid collection. No free air. BONES/JOINTS: Degenerative spine changes, marked disc space narrowing at multiple lumbar levels, mild narrowing of the ventral thecal sac. Moderate annular disc bulge or mild posterior protrusion and at least mild spinal stenosis and at least moderate neural foraminal stenosis at L3-4. The AP diameter of the canal is estimated to be 8 mm in the midline at L3-4. Slight retrolisthesis of L4 with respect to L5. No suspicious lytic or blastic abnormality. SOFT TISSUES: Slight fat in the proximal left inguinal ring. VASCULATURE: Mild aortoiliac atherosclerotic calcifications, infrarenal aorta 2.5 cm x 2.5 cm, nonaneurysmal. Multiple phleboliths in the pelvis. LYMPH NODES: Unremarkable. No enlarged lymph nodes. CT/Abdomen/Pelvis W IV Cont ONLY IMPRESSION: 1. Cholelithiasis and borderline thickened gallbladder wall, similar to prior exam. 2. Newly seen choledocholithiasis. Mildly larger common duct, 9 mm, it was 4 mm. New calcification seen at or near the ampulla of the duodenum, measuring 5 mm. This is similar to the size and density of the gallstones. Electronically Signed: Julieth Velasquez MD at 22:27 EDT ,
--- NOTE | 2022-11-10 22:20 | EDS_ITS ---
HPI History of Present Illness Chief Complaint: Abd Pain Informant: patient and PCP Narrative Narrative: History is from patient and from surgeon, Dr. Bloom who called and discussed the case directly with me. Patient was seen here on the second of this month. He had episode of abdominal pain. He had extensive blood work done. He had ultrasound that did showed some stones sludge thickened wall and mild positive sonographic Jimenez sign. His CTA did not show any marked abnormalities. He went home. He has been doing great. He is not having any pain now. He followed up with his primary physician. He is referred to surgery for possible cholecystectomy. He was seen by surgeon today who did not think that this was likely acutely surgical. They did repeat blood work because it was noted that he was jaundiced. This now showed significantly elevated bilirubin at 4-/. Because of this he was sent in. He has been eating and drinking well. He states his stools have been a little bit soft but no change in color. He has had no fevers chills. No weight loss. He states he overall feels pretty good. [facility] Medical History (Updated 11/10/22 @ 22:[address] Gilberto Pavon MD) DVT (deep venous thrombosis) High cholesterol Migraines Osteoporosis Pulmonary embolism Home Medications atorvastatin 10 mg tablet 10 mg PO DAILY 10/19/22 [History Last Taken Unknown] hydrocodone-acetaminophen 5-325mg 5mg-325mg 1 tab PO Q6H PRN PRN Pain 3 days #12 TABLETS 10/19/22 [Rx Last Taken Unknown] meloxicam 15 mg tablet 15 mg PO DAILY 10/19/22 [History Last Taken Unknown] omeprazole 40 mg capsule,delayed release 40 mg PO QDAY #30 caps 11/10/22 [Rx Last Taken Unknown] Allergy/AdvReac Type Severity Reaction Status Date / Time No Known Allergies Allergy Verified 11/10/22 20:41 Family History (Updated 11/10/22 @ 15:15 by Sommer Norman) Grandfather Heart disease Surgical History (Updated 11/10/22 @ 15:14 by Sommer Norman) S/P vasectomy Social History (Updated 11/10/22 @ 15:15 by Sommer Norman) Smoking Status: Never smoker alcohol intake: current ROS ROS ED ROS Narrative A complete review of systems was performed and is negative except as documented in the history of present illness. Some specific details below. Constitutional: No recent fevers or chills. No malaise. EYE: No visual complaints or pain. Icterus was noted as an outpatient ENT: No difficulty swallowing. No swelling. No pain. No GERD CV: No chest pain or palpitations. Respiratory: No dyspnea. No hemoptysis. No difficulty taking breaths. GI: Please see history of present illness. : No frequency dysuria or hematuria. Although his urine looks a little bit orange on the counter, he has not noticed this. Musculoskeletal: No recent trauma. No pains. No pain in his back. No bone pain. Skin: No rash. Nondiaphoretic. Neuro: No weakness or numbness. Endocrine: No polyuria or polydipsia. EXAM Physical Exam Narrative Exam Narrative: CONSTITUTIONAL: Patient is nontoxic in appearance. The patient looks comfortable. He looks healthy. Carries on normal conversation. HEENT: No notable trauma. Mucous membranes moist. No sinus tenderness. No indication of pain with swallowing. EYES: No conjunctival injection. No proptosis. But there is mild icterus CARDIOVASCULAR: Regular rate. Regular rhythm. No notable murmur. No JVD. RESPIRATORY: No respiratory distress. Breathing is unlabored. No wheezes. No rhonchi. No rales. No pain with a deep breath. GASTROINTESTINAL: Not distended. Bowel sounds are normal. No tenderness. No guarding. No rebound. No palpable mass. No bruit. Overall his abdomen seems quite benign on exam. GENITOURINARY: No tenderness over the bladder. No CVA tenderness. MUSCULOSKELETAL: Atraumatic. No peripheral edema. No cord. No tenderness along the deep venous system. No asymmetry. NEUROLOGICAL: Patient is alert and appropriate. No focal deficit noted. SKIN: No noted rashes. No diaphoresis. I do not notice jaundice on the skin. But there is clearly icterus in the eyes. PSYCHIATRIC: Patient is calm. Mood is appropriate. Const Vital Signs: 11/10/22 20:38 Temperature 981 F H Temperature Source Temporal Pulse Rate 70 Respiratory Rate 16 Blood Pressure 160/90 H Blood Pressure Mean 113 Pulse Ox 95 Oxygen Delivery Method Room Air MDM MDM MDM Narrative Medical decision making narrative: Patient CBC showed mild low white count of 4.1 which is nonspecific. His platelets are normal. His INR is normal at 1.0. Electrolytes are normal other than mild rise of creatinine at 1.4. This is slightly above his last check. Liver function test show elevation of AST ALT alk phos and total bilirubin is 5 .0. Lipase is normal at 65. My independent interpretation of the patient's CT of the abdomen with IV contrast shows either multiple small gallstones or possible some calcification along the inferior lateral wall of the gallbladder. Proximal aspect of the duct does look a bit big. No pericholecystic fluid is noted but there may be some mild thickening of the wall. I am awaiting final reading of the CT at this time. Final read also showed a distal 5 mm stone in the ampulla near the duodenum. On prior study this was up in the gallbladder but it is now moved distally and appears to be causing obstruction within the large common bile duct. I did discuss the case directly with the radiologist on the phone. This is a clear change from his prior imaging. I discussed the case with gastroenterology, Dr. Schroeder. He stated even though the patient is not having pain, this patient is having rising LFTs at a rapid rate. He should have this resolved. He should come into the hospital and have ERCP. He would prefer to do the ERCP before cholecystectomy if a cholecystectomy is planned. I then discussed the case directly with surgery, Dr. Bloom. She recommended admission also. She also preferred ERCP first. She states depending on how the patient is doing they may or may not do cholecystectomy. This may be done in the hospital or could be done at a later time. She preferred medicine admit as is not clear that this patient is going to need surgery as there is no sign of acute cholecystitis. Lab Data Attestation: I reviewed the patient's lab results. Labs: Laboratory Results - last 24 hr 11/10/22 11/10/22 11/10/22 21:10 21:10 21:10 WBC 4.1 L RBC 4.66 Hgb 13.9 Hct 42.0 MCV 90.1 MCH 29.8 MCHC 33.1 RDW Std Deviation 41.1 RDW Coeff of Alicia 12.5 Plt Count 205 MPV 10.2 Immature Gran % (Auto) 0.200 Neut % (Auto) 47.6 Lymph % (Auto) 24.0 [place] % (Auto) 23.5 H Eos % (Auto) 3.2 Baso % (Auto) 1.5 H Absolute Neuts (auto) 1.9 L Absolute Lymphs (auto) 0.98 Nucleated RBC % 0 PT 13.1 INR 1.0 Sodium 139 Potassium 3.9 Chloride 105 Carbon Dioxide 28.0 Anion Gap 6 BUN 16 Creatinine 1.40 H Estim Creat Clear Calc 54.32 Est GFR (MDRD) Af Amer 65 Est GFR (MDRD) Non-Af 54 L BUN/Creatinine Ratio 11.4 Glucose 105 Calcium 8.8 Total Bilirubin 5.00 H AST 264 H ALT 394 H Alkaline Phosphatase 195 H Total Protein 7.4 Albumin 3.5 Globulin 3.9 Albumin/Globulin Ratio 0.9 Lipase 65 Radiography Diagnostic Testing: Clinical Impression(s) from Imaging Studies Abdomen/Pelvis CT 11/10/22 21:56 IMPRESSION: 1. Cholelithiasis and borderline thickened gallbladder wall, similar to prior exam. 2. Newly seen choledocholithiasis. Mildly larger common duct, 9 mm, it was 4 mm. New calcification seen at or near the ampulla of the duodenum, measuring 5 mm. This is similar to the size and density of the gallstones. Electronically Signed: Julieth Velasquez MD at 22:27 EDT , ADDENDUM: 11/10/22 2241 IMPRESSION: 1. Cholelithiasis and borderline thickened gallbladder wall, similar to prior exam. 2. Newly seen choledocholithiasis. Mildly larger common duct, 9 mm, it was 4 mm. New calcification seen at or near the ampulla of the duodenum, measuring 5 mm. This is similar to the size and density of the gallstones. N.B. : The above Results were Read Back by Julieth Velasquez MD to Gilberto Pavon MD, and understanding confirmed on 11/10/2022 22:34:39 (ET). Electronically Signed: Julieth Velasquez MD at 22:27 EDT , Management Discussion w/another healthcare provider: Hospitalist, Pit Recorder and Radiologist Discharge Plan Dx/Rx/DC Orders Clinical Impression: Calculus of common bile duct with obstruction, Elevated bilirubin, Elevated liver transaminase level, Elevated alkaline phosphatase level, Jaundice Disposition Disposition: Acute Care Hospital [facility]
--- NOTE | 2022-11-10 23:00 | EX.PCM.CON.G ---
HPI Consult Data Date of Consult: 11/10/22 HPI Narrative Reason for Consultation: Choledocholithiasis HPI Narrative: SAADIA FLORES, is a 67 M who presents to the emergency department with painless jaundice. He has a significant history of arthritis of the back? who presents to the ED with jaundice. On 10/19/2022 patient presented to the ED with abdominal pain.? Imaging at that time showed cholelithiasis with no evidence of cholecystitis.? In about 2 days time his abdominal pain re-ocurred.? He saw his PCP and an ultrasound was done.? The ultrasound showed gallbladder disease and patient was referred to general surgeon.? On patient's visit to the general surgeon it was noted that patient had jaundice also liver enzymes returned elevated so patient was sent to the emergency department for further evaluation. Initially his bilirubin was 0.8 increased to a total bilirubin 5. He also had a decrease AST to 300 and ALT 07/24/1947 along with alkaline phosphatase increased to 500. His repeat imaging now shows a stone in the distal common bile duct. [facility] Medical History DVT (deep venous thrombosis) High cholesterol Migraines Osteoporosis Pulmonary embolism Home Medications atorvastatin 10 mg tablet 10 mg PO QHS CHOLESTEROL 10/19/22 [History Last Taken 11/10/22] meloxicam 15 mg tablet 15 mg PO DAILY PAIN 10/19/22 [History Last Taken 11/11/22] tamsulosin 0.4 mg capsule 0.4 mg PO QHS URINE 11/10/22 [History Last Taken 11/10/22] Allergy/AdvReac Type Severity Reaction Status Date / Time No Known Allergies Allergy Verified 11/10/22 20:41 Family History Grandfather Heart disease Surgical History S/P vasectomy Social History Smoking Status: Never smoker alcohol intake: current ROS Constitutional Constitutional: Denies anorexia or fever(s) Eyes Eyes: Denies blurry vision ENT HEENT: Denies dysphagia Cardiovascular Cardiovascular: Denies chest pain Respiratory/Chest Respiratory/Chest: Denies cough Gastrointestinal Gastrointestinal: Denies abdominal pain, nausea or vomiting Genitourinary Genitourinary: Denies dysuria Musculoskeletal Musculoskeletal: Denies joint swelling Integumentary Integumentary: Reports jaundice Psychiatric Psychiatric: Denies anxiety or depression Physical Exam Const alert, oriented x3 and no apparent distress HEENT normocephalic and head/scalp atraumatic Eyes Eyes Narrative: Scleral icterus Resp normal respiratory effort Cardio regular rate GI soft to palpation and non-tender; Negative for non-distended Palpation: Negative for guarding Extremity no clubbing, cyanosis or edema Neuro CN's II-XII intact bilaterally Psych mental status grossly normal Lab / Micro Data Result Diagrams: 11/11/22 04:10 11/11/22 04:10 Labs: Laboratory Results - last 24 hr 11/10/22 21:10: WBC 4.1 L, RBC 4.66, Hgb 13.9, Hct 42.0, MCV 90.1, MCH 29.8, MCHC 33.1, RDW Std Deviation 41.1, RDW Coeff of Alicia 12.5, Plt Count 205, MPV 10.2, Immature Gran % (Auto) 0.200, Neut % (Auto) 47.6, Lymph % (Auto) 24.0, [place] % (Auto) 23.5 H, Eos % (Auto) 3.2, Baso % (Auto) 1.5 H, Absolute Neuts (auto) 1.9 L, Absolute Lymphs (auto) 0.98, Nucleated RBC % 0 11/10/22 21:10: PT 13.1, INR 1.0 11/10/22 21:10: Sodium 139, Potassium 3.9, Chloride 105, Carbon Dioxide 28.0, Anion Gap 6, BUN 16, Creatinine 1.40 H, Estim Creat Clear Calc 54.32, Est GFR (MDRD) Af Amer 65, Est GFR (MDRD) Non-Af 54 L, BUN/Creatinine Ratio 11.4, Glucose 105, Calcium 8.8, Total Bilirubin 5.00 H, AST 264 H, ALT 394 H, Alkaline Phosphatase 195 H, Total Protein 7.4, Albumin 3.5, Globulin 3.9, Albumin/Globulin Ratio 0.9, Lipase 65 11/11/22 04:10: WBC 4.3 L, RBC 4.62, Hgb 13.7, Hct 42.9, MCV 92.9, MCH 29.7, MCHC 31.9 L, RDW Std Deviation 42.4, RDW Coeff of Alicia 12.4, Plt Count 198, MPV 10.5, Immature Gran % (Auto) 0.500, Neut % (Auto) 49.6, Lymph % (Auto) 22.2, [place] % (Auto) 23.2 H, Eos % (Auto) 3.3, Baso % (Auto) 1.2 H, Absolute Neuts (auto) 2.1, Absolute Lymphs (auto) 0.95, Nucleated RBC % 0 11/11/22 04:10: Sodium 139, Potassium 3.9, Chloride 108 H, Carbon Dioxide 25.0, Anion Gap 6, BUN 15, Creatinine 1.25, Estim Creat Clear Calc 60.83, Est GFR (MDRD) Af Amer 75, Est GFR (MDRD) Non-Af 62, BUN/Creatinine Ratio 12.0, Glucose 99, Calcium 8.4 L, Total Bilirubin 5.00 H, AST 263 H, ALT 401 H, Alkaline Phosphatase 184 H, Total Protein 6.6, Albumin 3.2, Globulin 3.4, Albumin/Globulin Ratio 0.9 Radiology Impression Abdomen/Pelvis CT 11/10/22 21:56 IMPRESSION: 1. Cholelithiasis and borderline thickened gallbladder wall, similar to prior exam. 2. Newly seen choledocholithiasis. Mildly larger common duct, 9 mm, it was 4 mm. New calcification seen at or near the ampulla of the duodenum, measuring 5 mm. This is similar to the size and density of the gallstones. Electronically Signed: Julieth Velasquez MD at 22:27 EDT , ADDENDUM: 11/10/22 1209 IMPRESSION: 1. Cholelithiasis and borderline thickened gallbladder wall, similar to prior exam. 2. Newly seen choledocholithiasis. Mildly larger common duct, 9 mm, it was 4 mm. New calcification seen at or near the ampulla of the duodenum, measuring 5 mm. This is similar to the size and density of the gallstones. N.B. : The above Results were Read Back by Julieth Velasquez MD to Gilberto Pavon MD, and understanding confirmed on 11/10/2022 22:34:39 (ET). Electronically Signed: Julieth Velasquez MD at 22:27 EDT , Assessment & Plan Assessment/Plan (1) Choledocholithiasis: PLAN: He will undergo ERCP for obstructive jaundice secondary to choledocholithiasis. He was explained alternatives, risk, benefits including understanding bleeding, infection, sepsis, perforation, need for emergent surgery . He will have an ASA of 2. Charges/Coding Visit Charges Inpatient E&M: 41900 Init Hosp L2
--- NOTE | 2022-11-10 23:09 | PCM.HP.STD ---
HPI - General General Date of Admission: 11/10/22 Date of Service: 11/10/22 Chief Complaint: jaundiced HPI Narrative SAADIA FLORES, is a 67 M with a significant history of arthritis of the back who presents to the ED with jaundice. On 10/19/2022 patient presented to the ED with abdominal pain. Imaging at that time showed cholelithiasis with no evidence of cholecystitis. In about 2 days time his abdominal pain re-ocurred. He saw his PCP and an ultrasound was done. The ultrasound showed gallbladder disease and patient was referred to general surgeon. On patient's visit to the general surgeon it was noted that patient had jaundice also liver enzymes returned elevated so patient was sent to the emergency department for further evaluation. Emergency department ED doctor discussed the case with general surgeon and also gastroenterology. Patient denies any abdominal pain at this time. Per recommendation from general surgeon and gastroenterology the plan was to admit patient for possibly ERCP. [facility] Medical History DVT (deep venous thrombosis) High cholesterol Migraines Osteoporosis Pulmonary embolism Home Medications atorvastatin 10 mg tablet 10 mg PO QHS CHOLESTEROL 10/19/22 [History Last Taken 11/10/22] meloxicam 15 mg tablet 15 mg PO DAILY PAIN 10/19/22 [History Last Taken 11/11/22] tamsulosin 0.4 mg capsule 0.4 mg PO QHS URINE 11/10/22 [History Last Taken 11/10/22] Allergy/AdvReac Type Severity Reaction Status Date / Time No Known Allergies Allergy Verified 11/10/22 20:41 Family History Grandfather Heart disease Surgical History S/P vasectomy Social History Smoking Status: Never smoker alcohol intake: current ROS ROS Narrative Pertinent positives and pertinent negatives as noted in HPI. All other systems were reviewed and are negative Vital Signs Vital Signs Vital Signs: 11/10/22 20:38 Temperature 981 F H Temperature Source Temporal Pulse Rate 70 Respiratory Rate 16 Blood Pressure 160/90 H Blood Pressure Mean 113 Pulse Ox 95 Oxygen Delivery Method Room Air Weight Weight: 94.8 kg Body Mass Index (BMI) 29.9 Physical Exam Narrative Physical exam: General: Well-nourished, well-developed. Head: Normocephalic, atraumatic, no tenderness Eyes: Vision is grossly intact. EOMI ENT, no trauma, moist mucous membranes, no rhinorrhea Neck: Nontender, No thyromegaly. CVS: Regular rate and rhythm. S1-S2 present. No murmur, gallop or rub. Respiratory : clear to auscultation bilaterally, chest wall nontender Abdomen: Soft, nontender, nondistended, normal bowel sounds, no masses : Deferred Back: Nontender, no CVA tenderness, no midline spinal tenderness, deformities, step-offs Extremities: Nontender full range of motion, no trauma Skin: Normal color, no trauma, abrasions Neuro: Alert, oriented, cranial nerves II through XII grossly intact. Psychiatry: Normal mood. Normal affect. Not depressed. Not anxious. Results Lab / Micro Data Result Diagrams: 11/10/22 21:10 11/10/22 21:10 Labs: Laboratory Results - last 24 hr 11/10/22 21:10: WBC 4.1 L, RBC 4.66, Hgb 13.9, Hct 42.0, MCV 90.1, MCH 29.8, MCHC 33.1, RDW Std Deviation 41.1, RDW Coeff of Alicia 12.5, Plt Count 205, MPV 10.2, Immature Gran % (Auto) 0.200, Neut % (Auto) 47.6, Lymph % (Auto) 24.0, [place] % (Auto) 23.5 H, Eos % (Auto) 3.2, Baso % (Auto) 1.5 H, Absolute Neuts (auto) 1.9 L, Absolute Lymphs (auto) 0.98, Nucleated RBC % 0 11/10/22 21:10: PT 13.1, INR 1.0 11/10/22 21:10: Sodium 139, Potassium 3.9, Chloride 105, Carbon Dioxide 28.0, Anion Gap 6, BUN 16, Creatinine 1.40 H, Estim Creat Clear Calc 54.32, Est GFR (MDRD) Af Amer 65, Est GFR (MDRD) Non-Af 54 L, BUN/Creatinine Ratio 11.4, Glucose 105, Calcium 8.8, Total Bilirubin 5.00 H, AST 264 H, ALT 394 H, Alkaline Phosphatase 195 H, Total Protein 7.4, Albumin 3.5, Globulin 3.9, Albumin/Globulin Ratio 0.9, Lipase 65 Radiology Impression Abdomen/Pelvis CT 11/10/22 21:56 IMPRESSION: 1. Cholelithiasis and borderline thickened gallbladder wall, similar to prior exam. 2. Newly seen choledocholithiasis. Mildly larger common duct, 9 mm, it was 4 mm. New calcification seen at or near the ampulla of the duodenum, measuring 5 mm. This is similar to the size and density of the gallstones. Electronically Signed: Julieth Velasquez MD at 22:27 EDT , ADDENDUM: 11/10/22 2241 IMPRESSION: 1. Cholelithiasis and borderline thickened gallbladder wall, similar to prior exam. 2. Newly seen choledocholithiasis. Mildly larger common duct, 9 mm, it was 4 mm. New calcification seen at or near the ampulla of the duodenum, measuring 5 mm. This is similar to the size and density of the gallstones. N.B. : The above Results were Read Back by Julieth Velasquez MD to Gilberto Pavon MD, and understanding confirmed on 11/10/2022 22:34:39 (ET). Electronically Signed: Julieth Velasquez MD at 22:27 EDT , Assessment & Plan Assessment/Plan (1) Choledocholithiasis: (2) Cholelithiasis: PLAN: Plan Acute Cholelithiasis/choledocholithiasis. Radiologist impression of abdomen/pelvis CT: 1.? Cholelithiasis and borderline thickened gallbladder wall, similar to prior exam. ? 2.? Newly seen choledocholithiasis. Mildly larger common duct, 9 mm, it was 4 mm. New calcification seen at or near the ampulla of the duodenum, measuring 5 mm. This is similar to the size and density of the gallstones Independent interpretation by hospitalist: Chest/abdomen/pelvis CTA on 10/19/2022 and gallbladder ultrasound on 10/21/2022 was visualized, independently interpreted and compared with abdomen and pelvis CT on 11/10/2022 and I agree with radiology interpretation. CMP with elevated liver biochemistry and alkaline phosphatase compared to previous. Also with elevated total bilirubin compared to previous. CBC with mild leukopenia, trend. Trend CMP. Supportive treatment with lactated Ringer's and as needed IV antiemetics. Keep NPO. GI and general surgery consults. CKD stage II Stable DVT prophylaxis: SCDs ordered Charges/Coding Visit Charges Inpatient E&M: 27105 Init Hosp L3
[2022-11-10 23:23] VITALS: BP 136/88; PULSE 60; RESP 16; TEMP 36.6; O2SAT 97
[2022-11-11] VITALS (12 sets, daily range): BP systolic 123–147; BP diastolic 70–99; PULSE 58–69; RESP 16–18; TEMP 36.2–37.2; O2SAT 93–99; BMI 29.1
[2022-11-11] MEDS: Lactated Ringers 1,000 ML 75 ML IV (00:59)
[2022-11-11 04:35] LABS: Absolute Lymphocyte Count 0.95 X10^3/uL (0.83-4.51); Absolute Neutrophil Count 2.1 X10^3/uL (2.0-7.7); Basophil# 0.05 X10^3/uL; Basophil% 1.2 % (0-1); Eosinophil# 0.14 X10^3/uL; Eosinophils% 3.3 % (0-5); Hematocrit 42.9 % (40-54); Hemoglobin 13.7 g/dL (13.0-16.5); Lymphocyte # 0.95 X10^3/ul (0.83-4.51); Lymphocyte % 22.2 % (19-41); Mean Corp Hgb Conc 31.9 g/dL (32-36); Mean Corpuscular Hgb 29.7 pg (27.0-32.0); Mean Corpuscular Volume 92.9 fL (80-94); Mean Platelet Vol. 10.5 fl (6.2-12.0); Monocyte# 0.99 X10^3/uL; Monocyte% 23.2 % (0-10); NRBC Flagged by Analyzer 0 % (0-5); Neutrophil # 2.12 X10^3/uL (2.7-7.7); Neutrophil % 49.6 % (47-70); Platelet Count 198 K/mm3 (150-450); RBC Distribution Width CV 12.4 % (11.6-14.6); RBC Distribution Width SD 42.4 fl (35.1-43.9); Red Blood Count 4.62 M/mm3 (4.6-6.2); White Blood Count 4.3 K/mm3 (4.4-11.0)
[2022-11-11 05:13] LABS: ALB/GLOB Ratio 0.9 RATIO (0.9-2.4); AST(SGOT) 263 U/L (15-37); Alanine Aminotransfer ALT/SGPT 401 U/L (16-61); Albumin, Serum 3.2 g/dL (3.2-5.0); Alkaline Phosphatase 184 U/L (45-117); Anion Gap 6 (5-15); BUN 15 mg/dL (7-18); Calcium,Total 8.4 mg/dL (8.5-10.1); Chloride 108 mmol/L (98-107); Creatinine, Serum 1.25 mg/dL (0.70-1.30); EST Glomerular Filtration Rate 62 mL/min (>60); Est Glom Filt Rate - Afr Amer 75 mL/min (>60); Estimated Creatinine Clearance 60.83 ml/min; Globulin 3.4 g/dL (2.2-4.2); Glucose 99 mg/dL (74-106); Potassium 3.9 mmol/L (3.5-5.1); Protein, Total 6.6 g/dL (6.4-8.2); Sodium Level 139 mmol/L (136-145)
--- NOTE | 2022-11-11 06:00 | EKG12_ITS ---
Test Reason : AM EKG Blood Pressure : / mmHG Vent. Rate : 056 BPM Atrial Rate : 056 BPM P-R Int : 198 ms QRS Dur : 096 ms QT Int : 432 ms P-R-T Axes : 044 -19 -23 degrees QTc Int : 416 ms Sinus bradycardia Septal infarct , age undetermined Inferior infarct (cited on or before 18-SEP-2009) Abnormal ECG When compared with ECG of 18-SEP-2009 13:29, Septal infarct is now Present Questionable change in initial forces of Inferior leads ST no longer elevated in Inferior leads Confirmed by TIGRE JEAN, JEREMIAS ([id number]), market editor SHANNAN FOSS ([id number]) on 11/12/2022 9:29:08 AM Referred By: SUSANNAH Confirmed By:JEREMIAS LANDEROS MD
--- NOTE | 2022-11-11 07:24 | CON.PCM.SX_ITS ---
Assessment & Plan Assessment/Plan (1) Choledocholithiasis: (2) Cholelithiasis: (3) Elevated bilirubin: (4) Jaundice: PLAN: Plan Did personally review CT abdomen pelvis. Patient should be having ERCP with Dr. Schroeder today. We will plan for laparoscopic cholecystectomy tomorrow. Reviewed the anatomy with the patient and discussed the procedure: laparoscopic cholecystectomy with cholangiograms, possible open. Review risks including but not limited to bleeding, infection, hernia, bile leak, retained gallstones requiring another procedure ERCP- Endoscopic Retrograde Cholangiopancreatography, injury to another organ (bile ducts, common bile duct, small bowel, etc.) and conversion to an open procedure. All questions were answered. Prophylactically on Zosyn due to choledocholithiasis Margarette Bloom M.D. Pager: [phone] [facility] [address] [place] [address], [facility], [address] [place] [address] Office: [phone] HPI Consult Data Date of Consult: 11/11/22 HPI Narrative HPI Narrative: SAADIA FLORES, is a 67 M who presented to the ER due to abnormal LFTs. Further work-up showed normal CBC, LFTs were slightly higher with a bilirubin of 5. Patient CT abdomen pelvis showed choledocholithiasis at the ampulla. Patient still denies any abdominal pain, nausea, vomiting. ER physician did discuss with Dr. Schroeder plan for an ERCP today. [facility] Medical History DVT (deep venous thrombosis) High cholesterol Migraines Osteoporosis Pulmonary embolism Home Medications atorvastatin 10 mg tablet 10 mg PO QHS CHOLESTEROL 10/19/22 [History Last Taken 11/10/22] meloxicam 15 mg tablet 15 mg PO DAILY PAIN 10/19/22 [History Last Taken 11/11/22] tamsulosin 0.4 mg capsule 0.4 mg PO QHS URINE 11/10/22 [History Last Taken 11/10/22] Allergy/AdvReac Type Severity Reaction Status Date / Time No Known Allergies Allergy Verified 11/10/22 20:41 Family History Grandfather Heart disease Surgical History S/P vasectomy Social History Smoking Status: Never smoker alcohol intake: current ROS Constitutional Constitutional: Denies anorexia or fever(s) Eyes Eyes: Denies blurry vision ENT HEENT: Denies dysphagia Cardiovascular Cardiovascular: Denies chest pain Respiratory/Chest Respiratory/Chest: Denies cough Gastrointestinal Gastrointestinal: Denies abdominal pain, nausea or vomiting Genitourinary Genitourinary: Denies dysuria Musculoskeletal Musculoskeletal: Denies joint swelling Integumentary Integumentary: Reports jaundice Psychiatric Psychiatric: Denies anxiety or depression Physical Exam Const alert, oriented x3 and no apparent distress HEENT normocephalic and head/scalp atraumatic Eyes Eyes Narrative: Scleral icterus Resp normal respiratory effort Cardio regular rate GI soft to palpation and non-tender; Negative for non-distended Palpation: Negative for guarding Extremity no clubbing, cyanosis or edema Neuro CN's II-XII intact bilaterally Psych mental status grossly normal Lab / Micro Data Result Diagrams: 11/11/22 04:10 11/11/22 04:10 Labs: Laboratory Results - last 24 hr 11/10/22 21:10: WBC 4.1 L, RBC 4.66, Hgb 13.9, Hct 42.0, MCV 90.1, MCH 29.8, MCHC 33.1, RDW Std Deviation 41.1, RDW Coeff of Alicia 12.5, Plt Count 205, MPV 10.2, Immature Gran % (Auto) 0.200, Neut % (Auto) 47.6, Lymph % (Auto) 24.0, Anderson % (Auto) 23.5 H, Eos % (Auto) 3.2, Baso % (Auto) 1.5 H, Absolute Neuts (auto) 1.9 L, Absolute Lymphs (auto) 0.98, Nucleated RBC % 0 11/10/22 21:10: PT 13.1, INR 1.0 11/10/22 21:10: Sodium 139, Potassium 3.9, Chloride 105, Carbon Dioxide 28.0, Anion Gap 6, BUN 16, Creatinine 1.40 H, Estim Creat Clear Calc 54.32, Est GFR (MDRD) Af Amer 65, Est GFR (MDRD) Non-Af 54 L, BUN/Creatinine Ratio 11.4, Glucose 105, Calcium 8.8, Total Bilirubin 5.00 H, AST 264 H, ALT 394 H, Alkaline Phosphatase 195 H, Total Protein 7.4, Albumin 3.5, Globulin 3.9, Albumin/Globulin Ratio 0.9, Lipase 65 11/11/22 04:10: WBC 4.3 L, RBC 4.62, Hgb 13.7, Hct 42.9, MCV 92.9, MCH 29.7, MCHC 31.9 L, RDW Std Deviation 42.4, RDW Coeff of Alicia 12.4, Plt Count 198, MPV 10.5, Immature Gran % (Auto) 0.500, Neut % (Auto) 49.6, Lymph % (Auto) 22.2, Anderson % (Auto) 23.2 H, Eos % (Auto) 3.3, Baso % (Auto) 1.2 H, Absolute Neuts (auto) 2.1, Absolute Lymphs (auto) 0.95, Nucleated RBC % 0 11/11/22 04:10: Sodium 139, Potassium 3.9, Chloride 108 H, Carbon Dioxide 25.0, Anion Gap 6, BUN 15, Creatinine 1.25, Estim Creat Clear Calc 60.83, Est GFR (MDRD) Af Amer 75, Est GFR (MDRD) Non-Af 62, BUN/Creatinine Ratio 12.0, Glucose 99, Calcium 8.4 L, Total Bilirubin 5.00 H, AST 263 H, ALT 401 H, Alkaline Phosphatase 184 H, Total Protein 6.6, Albumin 3.2, Globulin 3.4, Albumin/Globulin Ratio 0.9 Radiology Impression Abdomen/Pelvis CT 11/10/22 21:56 IMPRESSION: 1. Cholelithiasis and borderline thickened gallbladder wall, similar to prior exam. 2. Newly seen choledocholithiasis. Mildly larger common duct, 9 mm, it was 4 mm. New calcification seen at or near the ampulla of the duodenum, measuring 5 mm. This is similar to the size and density of the gallstones. Electronically Signed: Julieth Velasquez MD at 22:27 EDT , ADDENDUM: 11/10/22 2241 IMPRESSION: 1. Cholelithiasis and borderline thickened gallbladder wall, similar to prior exam. 2. Newly seen choledocholithiasis. Mildly larger common duct, 9 mm, it was 4 mm. New calcification seen at or near the ampulla of the duodenum, measuring 5 mm. This is similar to the size and density of the gallstones. N.B. : The above Results were Read Back by Julieth Velasquez MD to Gilberto Pavon MD, and understanding confirmed on 11/10/2022 22:34:39 (ET). Electronically Signed: Julieth Velasquez MD at 22:27 EDT , Charges/Coding Visit Charges Inpatient E&M: 65188 Init Hosp L2
[2022-11-11] MEDS: 0.9% Normal Saline 1,000 ML 75 ML IV ×2 (07:47→21:02)
--- NOTE | 2022-11-11 10:16 | CASEMGMT ---
Social work SW spoke with pt regarding advance directives. Pt states he has a living will and HCPOA naming his Jaymie. Pt made aware documents are not on file at [facility] and requested they be brought in for scanning into his medical record. VINCENZO Posey
--- NOTE | 2022-11-11 12:33 | CASEMGMT ---
RN?CM?MEDICAL VAN DRIVER?CM?to room to meet with patient for initial transition planning/care coordination?assessment.?RN?CM?introduced self and role at [facility].? Pt voices understanding and consents to?assessment?at this time.? Pt resting in bed in no distress at this time.? Pt is A/O at this time and answers all questions appropriately.?? Care providers, pharmacy, and demographics verified/updated at this time. PCP: Dr Mccall Specialists: Dr Bloom-surgeon Preferred Pharmacy: [facility] Insurance: [employer] [facility] Prescription Benefit:?Yes Living Will/HPOA:?Has both LW and HCPOA, who is his , Jaymie LNOK: , Jaymie Living Arrangements: Lives w/his in 2-story home w/one step to enter. Denies difficulty w/stairs. Independent. Transportation:?Pt states drives self and states no transportation concerns at this time.? also drives. DME: ? Denies using any DME and denies needs.? HHC/SNF: No hx of either. No needs identifed. Pt wishes to return home and states has no concerns with going home at time of discharge.? CM?to follow for any discharge planning/needs.? Pt voices no concerns/needs at this time.? Advised pt to ask for?CM?if any questions/concerns/needs arise.? Voices understanding. PLAN:??Home Yasmany BSN?RN?CM
--- NOTE | 2022-11-11 16:00 | RAD_ITS ---
EXAM/TECHNIQUE: Fluoroscopic support was provided during ERCP. 128 seconds of fluoroscopy time was used. Radiation dose 32.64 mGy (air kerma). Radiation dose (mGym2,dose area product) dictated was not provided. FINDINGS/COMMENTS: Fluoroscopic support provided during ERCP. 7 C-arm images. Common bile duct filling defect demonstrated. Please refer to the procedure note for further details. Electronically Signed: Tyler Lynch MD at 19:08 EDT , RAD/ERCP Biliary/Pancreas IMPRESSION: undefined
--- NOTE | 2022-11-11 16:01 | PCM.PN.HOSP ---
Reason for Visit Reason for Visit: Diagnoses Calculus of gallbladder without cholecystitis without obstruction (11/10/22) Calculus of bile duct without cholangitis or cholecystitis without obstruction (11/10/22) Unspecified jaundice (11/10/22) Subjective Subjective Patient was seen and examined today, he is due to undergo an ERCP today and will undergo a laparoscopic cholecystectomy tomorrow. Patient does not complain of severe abdominal pain at this time. White blood cell count this morning was 4.3, he is afebrile. Bilirubin today was 5, his other liver enzymes remain elevated similar to yesterday's results. Objective Data Objective Data Vital Signs: Vital Signs Temp Pulse Resp BP Pulse Ox O2 Del Method 98.2 F 59 L 18 136/81 H 98 Room Air 11/11/22 12:56 11/11/22 12:56 11/11/22 12:56 11/11/22 12:56 11/11/22 12:56 11/11/22 12:56 Oxygen Delivery Method Room Air Weight: 92.1 kg Body Mass Index (BMI) 29.1 Intake & Output: Intake and Output for Last 24 Hours 11/09/22 11/10/22 11/11/22 23:59 23:59 23:59 Intake Total 50 / 50 Balance 50 / 50 Lab / Micro Data Result Diagrams: 11/11/22 04:10 11/11/22 04:10 Labs: Laboratory Results - last 24 hr 11/10/22 21:10: WBC 4.1 L, RBC 4.66, Hgb 13.9, Hct 42.0, MCV 90.1, MCH 29.8, MCHC 33.1, RDW Std Deviation 41.1, RDW Coeff of Alicia 12.5, Plt Count 205, MPV 10.2, Immature Gran % (Auto) 0.200, Neut % (Auto) 47.6, Lymph % (Auto) 24.0, [place] % (Auto) 23.5 H, Eos % (Auto) 3.2, Baso % (Auto) 1.5 H, Absolute Neuts (auto) 1.9 L, Absolute Lymphs (auto) 0.98, Nucleated RBC % 0 11/10/22 21:10: PT 13.1, INR 1.0 11/10/22 21:10: Sodium 139, Potassium 3.9, Chloride 105, Carbon Dioxide 28.0, Anion Gap 6, BUN 16, Creatinine 1.40 H, Estim Creat Clear Calc 54.32, Est GFR (MDRD) Af Amer 65, Est GFR (MDRD) Non-Af 54 L, BUN/Creatinine Ratio 11.4, Glucose 105, Calcium 8.8, Total Bilirubin 5.00 H, AST 264 H, ALT 394 H, Alkaline Phosphatase 195 H, Total Protein 7.4, Albumin 3.5, Globulin 3.9, Albumin/Globulin Ratio 0.9, Lipase 65 11/11/22 04:10: WBC 4.3 L, RBC 4.62, Hgb 13.7, Hct 42.9, MCV 92.9, MCH 29.7, MCHC 31.9 L, RDW Std Deviation 42.4, RDW Coeff of Alicia 12.4, Plt Count 198, MPV 10.5, Immature Gran % (Auto) 0.500, Neut % (Auto) 49.6, Lymph % (Auto) 22.2, [place] % (Auto) 23.2 H, Eos % (Auto) 3.3, Baso % (Auto) 1.2 H, Absolute Neuts (auto) 2.1, Absolute Lymphs (auto) 0.95, Nucleated RBC % 0 11/11/22 04:10: Sodium 139, Potassium 3.9, Chloride 108 H, Carbon Dioxide 25.0, Anion Gap 6, BUN 15, Creatinine 1.25, Estim Creat Clear Calc 60.83, Est GFR (MDRD) Af Amer 75, Est GFR (MDRD) Non-Af 62, BUN/Creatinine Ratio 12.0, Glucose 99, Calcium 8.4 L, Total Bilirubin 5.00 H, AST 263 H, ALT 401 H, Alkaline Phosphatase 184 H, Total Protein 6.6, Albumin 3.2, Globulin 3.4, Albumin/Globulin Ratio 0.9 Radiography Diagnostic Testing: Radiology Impression Abdomen/Pelvis CT 11/10/22 21:56 IMPRESSION: 1. Cholelithiasis and borderline thickened gallbladder wall, similar to prior exam. 2. Newly seen choledocholithiasis. Mildly larger common duct, 9 mm, it was 4 mm. New calcification seen at or near the ampulla of the duodenum, measuring 5 mm. This is similar to the size and density of the gallstones. Electronically Signed: Julieth Velasquez MD at 22:27 EDT , ADDENDUM: 11/10/222240 IMPRESSION: 1. Cholelithiasis and borderline thickened gallbladder wall, similar to prior exam. 2. Newly seen choledocholithiasis. Mildly larger common duct, 9 mm, it was 4 mm. New calcification seen at or near the ampulla of the duodenum, measuring 5 mm. This is similar to the size and density of the gallstones. N.B. : The above Results were Read Back by Julieth Velasquez MD to Gilberto Pavon MD, and understanding confirmed on 11/10/2022 22:34:39 (ET). Electronically Signed: Julieth Velasquez MD at 22:27 EDT , Physical Exam Const alert, oriented x3, no apparent distress and average body habitus General Appearance: cooperative, well kempt and well developed Orientation / Consciousness: awake, oriented to person, oriented to place and oriented to time HEENT normocephalic, head/scalp atraumatic and moist oral mucous membranes Eyes PERRL, EOMs intact bilaterally and conjunctivae normal Neck supple, no JVD, thyroid normal and no carotid bruits General: trachea midline Resp normal respiratory effort, no retractions, no use of accessory muscles and clear to auscultation bilaterally Auscultation: Negative for rales, rhonchi or wheezes Cardio regular rate, regular rhythm, S1 normal heart sound, S2 normal heart sound, no murmurs, no rub and no gallops GI normal to inspection, nondistended, normoactive bowel sounds, soft to palpation, non-tender and non-distended Extremity no clubbing, cyanosis or edema Skin no rashes or lesions noted General Skin Exam: no breakdown Neuro oriented x3, CN's II-XII intact bilaterally, moves all extremities, no focal motor deficits and no sensory deficits noted Sensorium / Orientation: awake, alert, oriented to person, oriented to place and oriented to time Speech: speech normal Psych affect normal Assessment & Plan Assessment/Plan (1) Choledocholithiasis: PLAN: Plan 1. Choledocholithiasis-again patient will undergo an ERCP today and a laparoscopic cholecystectomy tomorrow #2 hyperlipidemia-patient is on atorvastatin #3 osteoarthritis-patient takes meloxicam #4 BPH-patient takes Flomax #5 jaundice and elevated liver enzymes secondary to #1-labs will be monitored Total clinical time spent by myself addressing patient's medical issues, reviewing all of his data, and collaborating with patient's care team 25 minutes Charges/Coding Visit Charges Inpatient E&M: 61255 Subs Hosp L1
--- NOTE | 2022-11-11 16:36 | OP.ERCP_ITS ---
Patient Name: Lucas Calderon Procedure Date: 11/11/2022 2:50 PM Date of : 1955 Age: 67 Procedure: ERCP Indications: Bile duct stone(s) Providers: Amando Schroeder DO Medicines: Monitored Anesthesia Care Patient Profile: This is a 67 year old male. Refer to note in patient chart for documentation of history and physical. Patient has symptoms. This patient has no history of previous ERCP. Complications: No immediate complications. Procedure: Pre-Anesthesia Assessment: - Prior to the procedure, a History and Physical was performed, and patient medications and allergies were reviewed. The patient is competent. The risks and benefits of the procedure and the sedation options and risks were discussed with the patient. All questions were answered and informed consent was obtained. Patient identification and proposed procedure were verified by the physician. Mental Status Examination: normal. Respiratory Examination: clear to auscultation. CV Examination: normal. Prophylactic Antibiotics: The patient does not require prophylactic antibiotics. Prior Anticoagulants: The patient has taken no previous anticoagulant or antiplatelet agents. ASA Grade Assessment: II - A patient with mild systemic disease. After reviewing the risks and benefits, the patient was deemed in satisfactory condition to undergo the procedure. The anesthesia plan was to use monitored anesthesia care (MAC). Immediately prior to administration of medications, the patient was re-assessed for adequacy to receive sedatives. The heart rate, respiratory rate, oxygen saturations, blood pressure, adequacy of pulmonary ventilation, and response to care were monitored throughout the procedure. The physical status of the patient was re-assessed after the procedure. After obtaining informed consent, the scope was passed under direct vision. Throughout the procedure, the patient's blood pressure, pulse, and oxygen saturations were monitored continuously. The Duodenoscope was introduced through the mouth, and advanced to the duodenum and used to inject contrast into the bile duct. The Duodenoscope was introduced through the mouth, and advanced to the duodenum and used to inject contrast into the bile duct. The ERCP was accomplished without difficulty. The patient tolerated the procedure well. Scope In: 4:03:08 PM Scope Out: 4:23:01 PM Total Procedure Duration Time 0 hours 19 minutes 53 seconds Findings: The university professor film was normal. The esophagus was successfully intubated under direct vision. The scope was advanced to a normal major papilla in the descending duodenum without detailed examination of the pharynx, larynx and associated structures, and upper GI tract. The upper GI tract was grossly normal. The bile duct was deeply cannulated with the short-nosed traction sphincterotome. Contrast was injected. I personally interpreted the bile duct images. There was brisk flow of contrast through the ducts. Image quality was excellent. Contrast extended to the entire biliary tree. Opacification of the entire opacified area and main bile duct was successful. The maximum diameter of the ducts was 8 mm. The lower third of the main bile duct contained three stones, the largest of which was 6 mm in diameter. The common bile duct was segmentally dilated, with a stone causing an obstruction. The largest diameter was 5 mm. Placement of a long 0.025 inch Jagwire into the biliary tree was attempted. This passed successfully. A 5 mm biliary sphincterotomy was made with a traction (standard) sphincterotome using ERBE electrocautery. Moderate bleeding from the sphincterotomy stopped within 5 minutes. The biliary tree was swept with a 15 mm balloon starting at the bifurcation. Sludge was swept from the duct. All stones were removed. Dilation of the lower third of the main bile duct with 5-7-8.5 Fr catheter dilator was successful. Impression: - The common bile duct was dilated, with a stone causing an obstruction. - Choledocholithiasis was found. Complete removal was accomplished by biliary sphincterotomy and balloon extraction. - A biliary sphincterotomy was performed. - The biliary tree was swept. - The lower third of the main bile duct was successfully dilated. Procedure Code(s): --- Professional --- 21714, Endoscopic retrograde cholangiopancreatography (ERCP); with removal of calculi/debris from biliary/pancreatic duct(s) 61255, Endoscopic retrograde cholangiopancreatography (ERCP); with sphincterotomy/papillotomy 25568, Endoscopic catheterization of the biliary ductal system, radiological supervision and interpretation 16522, Unlisted procedure, biliary tract CPT copyright 2017 [employer]. All rights reserved. The codes documented in this report are preliminary and upon medicaid analyst review may be revised to meet current compliance requirements. Amando Schroeder DO 11/11/2022 4:36:19 PM This report has been signed electronically. Number of Addenda: 0 Note Initiated On: 11/11/2022 2:50 PM
--- NOTE | 2022-11-11 16:37 | OP.CCLET_ITS ---
11/11/2022 Richard Mccall [address] [place] [address] Re : ERCP procedure for Lucas Calderon Dear Dr. Mccall This procedure was performed on October. My impressions and recommendations are as follows: Impressions : - The common bile duct was dilated, with a stone causing an obstruction. - Choledocholithiasis was found. Complete removal was accomplished by biliary sphincterotomy and balloon extraction. - A biliary sphincterotomy was performed. - The biliary tree was swept. - The lower third of the main bile duct was successfully dilated. Recommendations : My findings are described in the full procedure note, which is enclosed. If I can be of further assistance, please feel free to contact me at . Sincerely, Amando Schroeder, 11/11/2022 4:36:19 PM This report has been signed electronically.
--- NOTE | 2022-11-11 18:41 | NURSING ---
pt tolerated diet. denies all pain or nausea
[2022-11-11] MEDS: Tamsulosin HCl 0.4 MG Capsule PO (20:42)
[2022-11-12] VITALS (9 sets, daily range): BP systolic 118–161; BP diastolic 56–85; PULSE 61–85; RESP 16–18; TEMP 36.4–36.7; O2SAT 93–97; BMI 29.1
--- NOTE | 2022-11-12 | GALL_PTH ---
PATIENT: SAADIA FLORES LOC: MS3 U#:[id number] AGE/SX: 67/M ROOM: [facility] [place] RE11/10/[address]: Dr. Tyler Melendez DO : 1955 BED: 1 DIS: 11/12/2022 SPEC #: [id number] RECD: 11/12/22 13:25 STATUS: ROSINA RETonya #: [id number] CHRISTINA: 11/12/22 00:[address]: Margarette Bloom DEPT: SURGICAL PATHOLOGY RECD BY: Kadeem Wood ENTERED: 11/12/22 13:25 SP TYPE: GALLBLADDE OTHR DR: MD Dr. Richard Espinoza MD Dr. Mark Tereletsky, DO Dr. Rahsaan Friend, DO Dr. Tamera Robotham, MD Tissues: Gallbladder, NOS Procedures: Surgery Specimen Level III Comments: @ Ordering doctor for III edited from to @ by RENATE at 11/12/22 1503 @ Submitting doctor edited from to @ by RGOOD at 11/12/22 1503 HEADER OPERATION: Laparoscopic cholecystectomy with IOC PRE-OP DIAGNOSIS: Choledocholithiasis, cholelithiasis TISSUE SUBMITTED: Gallbladder MICROSCOPIC DIAGNOSIS Gallbladder, cholecystectomy: Chronic cholecystitis and cholelithiasis. NOEL:balta 11/16/2022 MICROSCOPIC DESCRIPTION Slides are reviewed. GROSS DESCRIPTION Received is one container labeled with the patient's name and designated gallbladder. The specimen consists of a gallbladder measuring 8.5 cm in length and 3.5 cm in diameter. The external surface is pink-barba, smooth and glistening for the most part. Focally it is granular, hemorrhagic and contains cautery artifact. The gallbladder contains green-yellow mucoid bile and four irregular black stones measuring in aggregate 0.7 x 0.7 x 0.3 cm and 0.1 to 0.4 cm in greatest dimension. The mucosa is bile-stained and without any mass lesions. The gallbladder wall measures up to 0.3 cm in thickness. Composite Technician sections from the gallbladder and the cystic duct are submitted in one cassette. / NOEL:balta 11/12/2022 TC:3 CPT: 57742
[2022-11-12 08:01] LABS: Absolute Lymphocyte Count 0.68 X10^3/uL (0.83-4.51); Absolute Neutrophil Count 5.3 X10^3/uL (2.0-7.7); Basophil# 0.01 X10^3/uL; Basophil% 0.2 % (0-1); Hematocrit 44.7 % (40-54); Hemoglobin 14.7 g/dL (13.0-16.5); Lymphocyte # 0.68 X10^3/ul (0.83-4.51); Lymphocyte % 10.2 % (19-41); Mean Corp Hgb Conc 32.9 g/dL (32-36); Mean Corpuscular Hgb 30.1 pg (27.0-32.0); Mean Corpuscular Volume 91.6 fL (80-94); Mean Platelet Vol. 10.2 fl (6.2-12.0); Monocyte# 0.63 X10^3/uL; Monocyte% 9.5 % (0-10); NRBC Flagged by Analyzer 0 % (0-5); Neutrophil # 5.31 X10^3/uL (2.7-7.7); Neutrophil % 79.6 % (47-70); Platelet Count 210 K/mm3 (150-450); RBC Distribution Width CV 12.5 % (11.6-14.6); RBC Distribution Width SD 41.7 fl (35.1-43.9); Red Blood Count 4.88 M/mm3 (4.6-6.2); White Blood Count 6.7 K/mm3 (4.4-11.0)
[2022-11-12 08:18] LABS: AST(SGOT) 259 U/L (15-37); Alanine Aminotransfer ALT/SGPT 429 U/L (16-61); Albumin, Serum 3.1 g/dL (3.2-5.0); Alkaline Phosphatase 189 U/L (45-117); Anion Gap 8 (5-15); BUN 16 mg/dL (7-18); BUN/Creat Ratio 13.3 RATIO (10-20); Bilirubin, Direct 1.72 mg/dL (0.00-0.30); Calcium,Total 8.6 mg/dL (8.5-10.1); Chloride 107 mmol/L (98-107); EST Glomerular Filtration Rate 65 mL/min (>60); Est Glom Filt Rate - Afr Amer 78 mL/min (>60); Estimated Creatinine Clearance 63.37 ml/min; Globulin 3.8 g/dL (2.2-4.2); Glucose 119 mg/dL (74-106); Potassium 4.1 mmol/L (3.5-5.1); Protein, Total 6.9 g/dL (6.4-8.2); Sodium Level 140 mmol/L (136-145)
--- NOTE | 2022-11-12 09:00 | RAD_ITS ---
PROCEDURE: Fluoroscopic guided intraoperative cholangiogram DATE OF EXAMINATION: November 12, 2022 INDICATION: Male, 67 years old. LAPAROSCOPIC, CHOLECYSTECTOMY [facility] PHYSICIAN: Dr. Bloom FLUOROSCOPY TIME (if supplied): (8.3) seconds RADIATION DOSAGE (If Supplied By Facility): CTDIvol = ( 2.94 ) mGy, DLP = ( ) mGycm CONSENT: The risks, benefits and alternatives to the procedure were explained to the patient, and the patient agreed to the procedure and signed the consent. PROCEDURE/TECHNIQUE: (All elements of maximal sterile barrier technique followed, including US elements as applicable) The risks, benefits, and alternatives to the procedure were explained to patient, and the patient agreed to the procedure and signed a consent form for the procedure. Comparison study: CT of abdomen and pelvis dated November 10, 2022. Gallbladder ultrasound dated October 21, 2022 FINDINGS: Intraoperative surgical instrumentation seen in the rose hepatis region and overlying the liver. Contrast outlines the common bile duct and the main right and left intrahepatic biliary ducts. There is no uptake or contrast opacification in the gallbladder consistent with recent cholecystectomy. No filling defects are identified. There is no biliary ductal dilatation. There is free passage into the duodenum. No extraluminal leakage of contrast is seen outside of the biliary ducts or bowel. RAD/Cholangiogram/ O R,Initial IMPRESSION: 1. Status post fluoroscopic guided intraoperative cholangiogram Electronically Signed: Mikal Chong MD at 14:58 EDT ,
[2022-11-12] MEDS: Bupivacaine Mpf 0.5% 30 ML VIAL (10:30)
[2022-11-12] MEDS: Lactated Ringers 1,000 ML 15 ML IV (10:40)
--- NOTE | 2022-11-12 10:46 | OP.PCM_ITS ---
Report of Operation Date of Procedure: 11/12/22 Pre-Operative Diagnosis: Choledocholithiasis, cholelithiasis, acute cholecystit is Post-Operative Diagnosis: Same Surgery/Procedure Performed:: Laparoscopic cholecystectomy with cholangiograms Surgeon: Margarette Bloom Type of Anesthesia: General/Supplemental Anesthesiologist: Xander Winn Special Medications: Zosyn 3.375 g IV every 8 hours due to the choledocholithiasis and cholecystitis Specimen's removed: Gallbladder and stones Estimated Blood Loss (mL): < 10 cc Description of Procedure: Indications: this is a 67 year-old male who developed had biliary obstruction and previous episode of abdominal pain and on workup was found to have choledoc holithiasis, cholelithiasis, status post ERCP yesterday. Laparoscopic cholecystectomy was elected. Description procedure: The patient was placed on operating table in supine position. A timeout was completed verifying correct patient, procedure, site, position and special equipment prior to beginning procedure. General Anesthesia was induced. The abdomen was prepped and draped in usual sterile fashion. An incision was made in the natural skin line above the the umbilicus. The fascia was elevated and incised. The peritoneum was elevated and incised. Entry into the peritoneum was confirmed visually and no bowel was noted in the vicinity of the incision. Dewey trocar was placed. The abdomen was insufflated with carbon dioxide to a pressure of 12-15 mmHg. Patient tolerated insufflation well. The laparoscope was then inserted and abdomen inspected. No injuries from initial trocar placement were noted. Additional trochars were then inserted in the following locations 5 mm trocar in the epigastrium and 2 more 5 mm trochars along the right costal margin. The abdomen was inspected no abnormalities were found. The table is placed in reverse Trendelenburg position with the right side up. The adhesions between the gallbladder and omentum removed with traction. The dome of the gallbladder was grasped with atraumatic grasper passed through the lateral port and retracted over the dome of the liver. Infundibulum was then grasped with atraumatic grasper through the midclavicular port and retracted to the right lower quadrant. This maneuver exposed Calot's triangle. The peritoneum overlying the gallbladder infundibulum was then incised and cystic duct and artery identified and circumferentially dissected. Cavazos catheter was used for cholangiograms. The cholangiogram showed good filling of the common bile duct into the duodenum with no filling defects, good filling of the right and left bile ducts as well. The cystic duct and artery were then doubly clipped and divided close to the gallbladder. The gallbladder then dissected from its peritoneal attachments by electrocautery. Hemostasis was checked and the gallbladder and contained stones were removed using the endoscopic retrieval bag through the umbilical port. The gallbladder is passed off table as specimen. The gallbladder fossa was irrigated with saline and hemostasis obtained. There is no evidence of bleeding from the gallbladder fossa or cystic artery leakage of bile from the cystic duct stump. Secondary trochars removed under direct vision. No bleeding was noted the trocar sites. The laparoscope was withdrawn and umbilical trocar removed. The abdomen was allowed to collapse. The fascia of the 12 mm trocar was closed with a [id number] 0 Vicryl suture. The skin was closed with sutures of 4-0 Monocryl and Steri-Strips. The patient was extubated. The patient tolerated procedure well and was taken to the postanesthesia care unit in stable condition. Complications none
--- NOTE | 2022-11-12 10:50 | DCINST_ITS ---
Discharge Instructions Diet Discharge Diet: Light diet - advance as tolerated Activity Discharge Activity: May Not Drive (while taking narcotic pain medications.) May shower in (days): 1 Lifting Restrictions: no lifting >20 lbs x 2 wks, no strenuous exercise for 4 wks Dressing / Incision Call your doctor if your incision/area has: Continuous Slow Oozing, Sudden Increased Bleeding, Increased Pain/ Swelling, Increased Redness, Foul Smelling Discharge and Swelling at the incision site Call your doctor if you observe: Fever of 101 or Higher Remove Dressing in: 2 days Cleanse incision/area with: Soap & Water Additional Dressing/Incision Instructions:: Steri-Strips will fall off in 7 to 10 days, if they do not fall off okay to remove after 10 days. Follow Up Care Please Follow Up With: Margarette Bloom MD When: Call the office for a follow-up appointment 2 weeks; after 5 PM and on the weekends call [phone] with any concerns. Test Results: Test results from this visit will be discussed in further detail at your follow- up appointment, if applicable. Discharge Plan Admission Admit Date/Time: 11/10/22 23:12 Attending Provider: Tyler Melendez Primary Care Provider: Richard Mccall Consulting Providers: Amando Schroeder ; Margarette Bloom ; Neftali Angulo Discharge Orders/Prescriptions Prescriptions: New tramadol 50 mg tablet 50 - 100 mg PO Q6H PRN (Reason: pain) Qty: 14 0RF Continued atorvastatin 10 mg tablet 10 mg PO QHS Label Comments: TAKE 1 TABLET BY MOUTH NIGHTLY meloxicam 15 mg tablet 15 mg PO DAILY Label Comments: TAKE 1 TABLET DAILY NEEDED tamsulosin 0.4 mg capsule 0.4 mg PO QHS Label Comments: TAKE 1 CAPSULE BY MOUTH NIGHTLY Referrals / Follow Up: Richard Mccall MD [Primary Care Provider] -
--- NOTE | 2022-11-12 11:58 | SUR.PHASEI ---
delay in pt going to the floor due to had to wait for transport.
--- NOTE | 2022-11-12 13:23 | PCM.DC ---
Discharge Instructions Diet Discharge Diet: Light diet - advance as tolerated Activity May shower in (days): 1 Dressing / Incision Call your doctor if your incision/area has: Continuous Slow Oozing, Sudden Increased Bleeding, Increased Pain/ Swelling, Increased Redness, Foul Smelling Discharge and Swelling at the incision site Call your doctor if you observe: Fever of 101 or Higher Cleanse incision/area with: Soap & Water Additional Dressing/Incision Instructions:: Steri-Strips will fall off in 7 to 10 days, if they do not fall off okay to remove after 10 days. Follow Up Care Please Follow Up With: Margarette Bloom MD Test Results: Test results from this visit will be discussed in further detail at your follow-up appointment, if applicable. Discharge Plan Admission Admit Date/Time: 11/10/22 23:12 Primary Reason for Your Visit: choledocholithiasis Attending Provider: Tyler Melendez Primary Care Provider: Richard Mccall Consulting Providers: Amando Schroeder ; Margarette Bloom ; Neftali Angulo Discharge Orders/Prescriptions Prescriptions: New tramadol 50 mg tablet 50 - 100 mg PO Q6H PRN (Reason: pain) Qty: 14 0RF Continued atorvastatin 10 mg tablet 10 mg PO QHS Label Comments: TAKE 1 TABLET BY MOUTH NIGHTLY meloxicam 15 mg tablet 15 mg PO DAILY Label Comments: TAKE 1 TABLET DAILY NEEDED tamsulosin 0.4 mg capsule 0.4 mg PO QHS Label Comments: TAKE 1 CAPSULE BY MOUTH NIGHTLY Referrals / Follow Up: Richard Mccall MD [Primary Care Provider] - Margarette Bloom MD [Med Staff - Active Staff] - See Referral Note (call to schedule follow up appointment in 2 weeks) Disposition Disposition (needs filled in before D/C Order can be placed): Home, Self Care
--- NOTE | 2022-11-12 13:27 | PCM.DC.SUM ---
Providers Date of Admission: 11/10/22 Date of Discharge: 11/12/22 Primary Care Physician: Dr. Richard Mccall MD Consultations 11/11/22 00:15 Consult: Gastroenterology Routine Consulting Provider: Amando Schroeder Reason for Consult: Cholelithiasis/choledocholithiasis EMERGENT Consult: No Notified: Yes Date Notified: 11/10/22 Time Notified: 23:18 Method of Notification: ED Physician Initiated Consult: General Surgery Routine Consulting Provider: Margarette Bloom Reason for Consult: Cholelithiasis/choledocholithiasis EMERGENT Consult: No Notified: Yes Date Notified: 11/11/22 Time Notified: 06:49 Method of Notification: Text Reason For Visit: ACUTE CHOLELITHIASIS Diagnosis Discharge Diagnosis (1) Choledocholithiasis: Status: Acute Code(s): K80.50 - Calculus of bile duct without cholangitis or cholecystitis without obstruction Plan 1. Choledocholithiasis-again patient will undergo an ERCP today and a laparoscopic cholecystectomy tomorrow #2 hyperlipidemia-patient is on atorvastatin #3 osteoarthritis-patient takes meloxicam #4 BPH-patient takes Flomax #5 jaundice and elevated liver enzymes secondary to #1-labs will be monitored Total clinical time spent by myself addressing patient's medical issues, reviewing all of his data, and collaborating with patient's care team 25 minutes Medications at Discharge Home Medications atorvastatin 10 mg tablet 10 mg PO QHS CHOLESTEROL 10/19/22 meloxicam 15 mg tablet 15 mg PO DAILY PAIN 10/19/22 tamsulosin 0.4 mg capsule 0.4 mg PO QHS URINE 11/10/22 tramadol 50 mg tablet 50 - 100 mg PO Q6H PRN pain #14 tabs 11/12/22 Hospital Course Operations ERCP and - (Laparoscopic cholecystectomy) Procedures None Summary of Care Provided Minutes Spent on Discharge: 31 Hospital Course: This 67-year-old white male was seen in the emergency room at the direction of general surgery, patient had an episode of abdominal pain that he appeared jaundiced and blood work was obtained which showed a bilirubin of 4.5. Work-up in the emergency room included a CBC which showed a mildly decreased white blood cell count, CMP showed elevated liver enzymes and his creatinine was slightly elevated at 1.4. Abdomen and pelvis CT was performed, it revealed cholelithiasis, borderline thickened gallbladder wall, and choledocholithiasis. Patient was admitted to [place] [address], he was seen in consultation by general surgery and gastroenterology, an ERCP was performed on 11/11/2022 with removal of several gallstones from the common bile duct. Patient then underwent laparoscopic cholecystectomy on 11/12/2022. On 11/12/2022, patient was seen and examined: On examination he appeared in good health and spirits. Vital signs as documented. Skin warm and dry and without overt rashes. Neck without JVD, neck was supple, trachea midline, thyroid was normal. Lungs clear bilaterally, normal air movement was noted. Heart exam notable for regular rhythm, normal sounds and absence of murmurs, rubs or gallops. Abdomen-abdomen is nondistended, there is several small bandages over the laparoscopic sites on the abdominal wall, abdomen is not distended. Extremities nonedematous, no cyanosis was noted, no clubbing was noted. Neuro: Cranial nerves II through XII are grossly intact, no focal motor deficits were noted, sensation to light touch and pinprick intact, motor exam 5/5 throughout. Psych: Patient is alert and oriented x3, he does not appear anxious or depressed, he does not appear agitated. Patient was stable for discharge home on 11/12/2022. Weight / BMI Weight Weight: 92.1 kg Body Mass Index (BMI) 29.1 ABG / Lab / Microbiology Data Result Diagrams: 11/12/22 07:50 11/12/22 07:50 Laboratory: Laboratory Results - last 24 hr 11/12/22 07:50: WBC 6.7, RBC 4.88, Hgb 14.7, Hct 44.7, MCV 91.6, MCH 30.1, MCHC 32.9, RDW Std Deviation 41.7, RDW Coeff of Alicia 12.5, Plt Count 210, MPV 10.2, Immature Gran % (Auto) 0.500, Neut % (Auto) 79.6 H, Lymph % (Auto) 10.2 L, Garrard % (Auto) 9.5, Eos % (Auto) 0.0, Baso % (Auto) 0.2, Absolute Neuts (auto) 5.3, Absolute Lymphs (auto) 0.68 L, Nucleated RBC % 0 05/26/23 07:50: Sodium 140, Potassium 4.1, Chloride 107, Carbon Dioxide 25.0, Anion Gap 8, BUN 16, Creatinine 1.20, Estim Creat Clear Calc 63.37, Est GFR (MDRD) Af Amer 78, Est GFR (MDRD) Non-Af 65, BUN/Creatinine Ratio 13.3, Glucose 119 H, Calcium 8.6, Total Bilirubin 3.10 H, Direct Bilirubin 1.72 H, AST 259 H, ALT 429 H, Alkaline Phosphatase 189 H, Total Protein 6.9, Albumin 3.1 L, Globulin 3.8 Radiography Diagnostic Testing: Radiology Impression Endo Retro Cholangiopancreatogram 11/11/22 16:00 IMPRESSION: undefined D/C Instructions Discharge Diet: Light diet - advance as tolerated May shower in (days): 1 Call your doctor if your incision/area has: Continuous Slow Oozing, Sudden Increased Bleeding, Increased Pain/ Swelling, Increased Redness, Foul Smelling Discharge and Swelling at the incision site Call your doctor if you observe: Fever of 101 or Higher Cleanse incision/area with: Soap & Water Additional Dressing/Incision Instructions: Steri-Strips will fall off in 7 to 10 days, if they do not fall off okay to remove after 10 days. Please Follow Up With: Margarette Bloom MD When: Call the office for a follow-up appointment 2 weeks; after 5 PM and on the weekends call [phone] with any concerns. Meaningful Use Info Meaningful Use Diagnoses (Choose all that apply): None applicable Discharge Plan Admission Admit Date/Time: 11/10/22 23:12 Primary Reason for Your Visit: choledocholithiasis Attending Provider: Tyler Melendez Primary Care Provider: Richard Mccall Consulting Providers: Amando Schroeder ; Margarette Bloom ; Neftali Angulo Discharge Orders/Prescriptions Prescriptions: New tramadol 50 mg tablet 50 - 100 mg PO Q6H PRN (Reason: pain) Qty: 14 0RF Continued atorvastatin 10 mg tablet 10 mg PO QHS Label Comments: TAKE 1 TABLET BY MOUTH NIGHTLY meloxicam 15 mg tablet 15 mg PO DAILY Label Comments: TAKE 1 TABLET DAILY NEEDED tamsulosin 0.4 mg capsule 0.4 mg PO QHS Label Comments: TAKE 1 CAPSULE BY MOUTH NIGHTLY Referrals / Follow Up: Richard Mccall MD [Primary Care Provider] - Margarette Bloom MD [Med Staff - Active Staff] - See Referral Note (call to schedule follow up appointment in 2 weeks) Disposition Disposition (needs filled in before D/C Order can be placed): Home, Self Care Charges/Coding Visit Charges Inpatient E&M: 67149 Disch Hosp >30min
== END 2022-11-12 15:48 | disposition home or self-care (01) | DRG 419 ==
LOC: ED 22:59 → MS3 23:47
PROVIDERS: Internal Medicine Gastroenterology; Surgery; Admitting Provider Hospitalist; Emergency Provider Emergency Medicine; PCP Family Medicine; Visit Provider Internal Medicine
PROC: 0FC98ZZ Extirpation of Matter from Common Bile Duct, Via Natural or Artificial Opening Endoscopic (ICD-10-PCS; CPT 43260; principal; 2022-11-11 15:40)
PROC: 0FT44ZZ Resection of Gallbladder, Percutaneous Endoscopic Approach (ICD-10-PCS; CPT 47610; principal; 2022-11-12 08:40)
DX: K80.65 Calculus of gallbladder and bile duct with chronic cholecystitis with obstruction (principal); E78.00 Pure hypercholesterolemia, unspecified; M47.9 Spondylosis, unspecified; K66.0 Peritoneal adhesions (postprocedural) (postinfection); Z53.39 Other specified procedure converted to open procedure; Z79.891 Long term (current) use of opiate analgesic; Z79.899 Other long term (current) drug therapy
CPT/HCPCS: 36415; 74177; 74300; 74330; 76000; 80048; 80053; 80076; 83690; 85025; 85610; 88304; 93005; 99284; J7030; J7050; J7120; Q9967; A4216; J2405

== ENCOUNTER → 2022-11-10 | Outpatient (CLI) | payer MEDICARE, SELFPAY ==
[2022-11-10 17:20] LABS: AST(SGOT) 241 U/L (15-37); Alanine Aminotransfer ALT/SGPT 377 U/L (16-61); Albumin, Serum 3.4 g/dL (3.2-5.0); Alkaline Phosphatase 191 U/L (45-117); Bilirubin, Direct 2.92 mg/dL (0.00-0.30); Globulin 3.7 g/dL (2.2-4.2); Protein, Total 7.1 g/dL (6.4-8.2)
== END | disposition home or self-care (01) ==
LOC: LAB 15:37
PROVIDERS: PCP Family Medicine; Referring Provider Surgery; Visit Provider Surgery
DX: R17 Unspecified jaundice (principal)
CPT/HCPCS: 36415; 80076

== ENCOUNTER → 2023-01-07 | Outpatient (CLI) | payer MEDICARE, SELFPAY ==
[2023-01-07 18:33] LABS: Vitamin D,25 Hydroxy 43.8 ng/mL
[2023-01-07 18:46] LABS: ALB/GLOB Ratio 1.1 RATIO (0.9-2.4); AST(SGOT) 40 U/L (15-37); Alanine Aminotransfer ALT/SGPT 48 U/L (16-61); Albumin, Serum 3.9 g/dL (3.2-5.0); Alkaline Phosphatase 80 U/L (45-117); Anion Gap 6 (5-15); BUN 20 mg/dL (7-18); BUN/Creat Ratio 16.4 RATIO (10-20); Calcium,Total 8.7 mg/dL (8.5-10.1); Chloride 106 mmol/L (98-107); Cholesterol 126 mg/dL (200); Creatinine, Serum 1.22 mg/dL (0.70-1.30); EST Glomerular Filtration Rate 63 mL/min (>60); Est Glom Filt Rate - Afr Amer 77 mL/min (>60); Globulin 3.4 g/dL (2.2-4.2); Glucose 90 mg/dL (74-106); High Density Lipoprotein 36 mg/dL; PSA,Total - Annual Screen 2.91 ng/mL (0.00-4.00); Phosphorus 2.9 mg/dL (2.5-4.9); Potassium 4.1 mmol/L (3.5-5.1); Protein, Total 7.3 g/dL (6.4-8.2); Sodium Level 138 mmol/L (136-145); Triglycerides 46 mg/dL; Very Low Density Lipoprotein 9 mg/dL (5-40)
[2023-01-08 18:00] LABS: PTHIN 41.3 pg/mL (18.4-80.1)
== END | disposition home or self-care (01) ==
LOC: MFPLAB 15:25
PROVIDERS: PCP Family Medicine; Visit Provider Family Medicine
DX: E78.00 Pure hypercholesterolemia, unspecified (principal); N18.30 Chronic kidney disease, stage 3 unspecified; Z12.5 Encounter for screening for malignant neoplasm of prostate
CPT/HCPCS: 36415; 80053; 80061; 82306; 83970; 84100; 84153; G0103

== ENCOUNTER → 2023-01-14 | Outpatient (CLI) | payer MEDICARE, SELFPAY ==
[2023-01-14 10:33] LABS: AST(SGOT) 35 U/L (15-37); Alanine Aminotransfer ALT/SGPT 46 U/L (16-61); Albumin, Serum 3.8 g/dL (3.2-5.0); Alkaline Phosphatase 75 U/L (45-117); Bilirubin, Direct 0.34 mg/dL (0.00-0.30); Globulin 3.5 g/dL (2.2-4.2); Protein, Total 7.3 g/dL (6.4-8.2)
== END | disposition home or self-care (01) ==
LOC: MTLAB 07:29
PROVIDERS: PCP Family Medicine; Referring Provider Family Medicine; Visit Provider Family Medicine
DX: N18.30 Chronic kidney disease, stage 3 unspecified (principal)
CPT/HCPCS: 36415; 80076

== ENCOUNTER → 2023-07-13 | Outpatient (CLI) | payer MEDICARE, SELFPAY ==
[2023-07-13 08:13] LABS: Bacteria 0 SEEN /hpf (None Seen); Mucous, Urine 0 SEEN /hpf (<or=2+); Squamous Epithelial Cells - UA 0 SEEN /hpf (0-5); White Blood Cells 0 SEEN /hpf (0-5)
--- OUTSIDE RECORDS SUMMARY | 2023-07-13 08:26 | XMS RPT_ITS | CCD ---
Author Name Unknown Address [address] [place] [address] Organization [facility] Care Team Providers Care Public Improvement Inspector Name Role Phone Unavailable Primary Care Provider Unavailabl e Medications Current Medications Medication Drug Class(es) Dates Sig (Normalized) Sig (Original) erythromycin 0.005 mg/mg ophthalmic ointment (1 source) Macrolide, Macrolide Antimicrobial Start: 11-28-2020 erythromycin (ROMYCIN) 5 MG/GM ophthalmic ointment Apply to your eye 4 times a day 1 Tube 0 11/28/2020 Active meloxicam 15 mg oral tablet (1 source) Nonsteroidal Anti-inflammatory Drug take 1 tablet by mouth once daily meloxicam (MOBIC) 15 MG tablet Take 15 mg by mouth daily 0 Active Problems Problem Classification Problem Date Documented Da te Episodic/Chronic Other injuries and conditions due to external causes (1 source) Injury of eye region; Translations: [Unspecified injury of unspecified eye and orbit, initial encounter] Episodic Results Test Name Value Interpretation Reference Range Facil ity Vital Signs Date Time Vital Sign Value Performing Clinician Faci lity 11-28-2020 18:29-0400 Respiratory rate 16 /min Gordo Sarkar MD Work Phone: [employer] Work Phone: 11-28-2020 18:01-0400 Body height 180.3 cm Gordo Sarkar MD Work Phone: [employer] Work Phone: 11-28-2020 18:01-0400 Body mass index (BMI) [Ratio] 27.89 kg/m2 Gordo Sarkar MD Work Phone: [employer] Work Phone: 11-28-2020 18:01-0400 Body temperature 97.81 [degF] Gordo Sarkar MD Work Phone: [employer] Work Phone: 11-28-2020 18:01-0400 Body weight 90.72 kg Gordo Sarkar MD Work Phone: [employer] Work Phone: 11-28-2020 18:01-0400 Diastolic blood pressure 103 mm[Hg] Gordo Sarkar MD Work Phone: [employer] Work Phone: 11-28-2020 18:01-0400 Heart rate 60 /min Gordo Sarkar MD Work Phone: [employer] Work Phone: 11-28-2020 18:01-0400 SaO2% (BldA) [Mass fraction] 99 % Gordo Sarkar MD Work Phone: [employer] Work Phone: 11-28-2020 18:01-0400 Systolic blood pressure 158 mm[Hg] Gordo Sarkar MD Work Phone: [employer] Work Phone: Encounters Encounter Date Encounter Type Care Provider Facility Start: 11-28-2020 End: 11-28-2020 Emergency department patient visit Gordo Sarkar MD Work Phone: [facility] Emergency [facility] Procedures Date Procedure Procedure Detail Performing Clinician Start: 11-28-2020 Ct orbit sella/post fossa/ear w/o contrast matrl Leonides Rojo MD Work Phone: Plan of Treatment Date Care Activity Detail Author Start: 02-18-2021 Influenza vaccination Flu vacc ine (Season Ended) [employer] Phone: Start: 1967 COVID-19 Vaccine (1) COVID-19 Vaccin e (1) [employer] Work Phone: Social History Date Type Detail Facility Tobacco smoking stat [email or web address] Unknown if ever smoked [employer] Work Phone: Start: 1955 Sex Assigned At Not on file [facility] Work Phone: Exposure to SARS-CoV -2 (event) Not sure [facility] Medical Equipment Procedure Code Equipment Code Equipment Origin al Text Equipment Identifier Dates fluorescein ophthalmic strip 1 mg [id number] Start: 11-28-2020 End: 11-28-2020 Evaluation note Note Date & Type Note Facility documented in this encounter [facility] Work Phone: Reason for Referral Status Reason Specialty Diagnoses / Procedures Referred By Contact Referred To Contact [facility] Required Ophthalmology Diagnoses Eye trauma Gordo Sarkar MD [address] [place] [address] Afl Spi Ophth [phone] [facility] [address] [place] [address] Scheduling Instructions [facility] [address] [facility] [address] [place] [address] Summary Purpose Family History No Family History Records Found Advance Directives No Advanced Directives Records Found Additional Source Comments Reason for Visit (unrecogniz ed section and content) Ordered Prescriptions (unrec ognized section and content) Scheduled Active and Recently Administ ered Medications (unrecognized section and content) (unrecognized sect ion and content) No Status Records Found INFORMATION SOURCE (unrecogn ized section and content) FOR RECORDS PERTAINING TO PATIENTS WHO ARE OR HAVE BEEN ENROLLED IN A CHEMICAL DEPENDENCY/SUBSTANCEABUSE PROGRAM, SOME INFORMATION MAY BE OMITTED. This clinical summary was aggregated from multiple sources. Caution should be exercised in using it in the provision of clinical care. This summary normalizes information from multiple sources, and as a consequence, information in this document may materially change the coding, format and clinical context of patient data. In addition, data may be omitted in some cases. CLINICAL DECISIONS SHOULD BE BASED ON THE PRIMARY CLINICAL RECORDS. [email or web address] provides no warranty or guarantee of the accuracy or completeness of information in this document.
[2023-07-13 10:33] LABS: Color, Urine Yellow (Yellow); Glucose, Dipstick Normal (Normal); Ketone-Dipstick Negative (Negative); Leukocyte Esterase-Dipstick Negative /ul (Negative); Nitrite-Dipstick Negative (Negative); Occult Blood-Urine 10 /ul (Negative); Protein-Dipstick Negative (Negative); Urine Bilirubin Dipstick Negative (Negative); Urine Clarity Clear (Clear); Urine Urobilinogen Normal (Normal)
[2023-07-13 10:51] LABS: Absolute Lymphocyte Count 1.37 X10^3/uL (0.83-4.51); Absolute Neutrophil Count 6.6 X10^3/uL (2.0-7.7); Basophil# 0.05 X10^3/uL; Basophil% 0.5 % (0-1); Eosinophil# 0.21 X10^3/uL; Eosinophils% 2.2 % (0-5); Hemoglobin 14.9 g/dL (13.0-16.5); Lymphocyte # 1.37 X10^3/ul (0.83-4.51); Lymphocyte % 14.3 % (19-41); Mean Corp Hgb Conc 32.4 g/dL (32-36); Mean Corpuscular Hgb 29.6 pg (27.0-32.0); Mean Corpuscular Volume 91.5 fL (80-94); Mean Platelet Vol. 10.2 fl (6.2-12.0); Monocyte% 13.6 % (0-10); NRBC Flagged by Analyzer 0 % (0-5); Neutrophil % 69.2 % (47-70); Platelet Count 218 K/mm3 (150-450); RBC Distribution Width CV 12.4 % (11.6-14.6); Red Blood Count 5.03 M/mm3 (4.6-6.2); White Blood Count 9.6 K/mm3 (4.4-11.0)
[2023-07-13 10:56] LABS: Red Blood Cells-Urine 0-5 SEEN /hpf (0-5)
[2023-07-13 11:38] LABS: ALB/GLOB Ratio 0.9 RATIO (0.9-2.4); AST(SGOT) 32 U/L (15-37); Alanine Aminotransfer ALT/SGPT 43 U/L (16-61); Albumin, Serum 3.7 g/dL (3.2-5.0); Alkaline Phosphatase 87 U/L (45-117); Anion Gap 4 (5-15); BUN 19 mg/dL (7-18); BUN/Creat Ratio 15.3 RATIO (10-20); Calcium,Total 9.2 mg/dL (8.5-10.1); Chloride 106 mmol/L (98-107); Cholesterol 145 mg/dL (200); Creatinine, Serum 1.24 mg/dL (0.70-1.30); EST Glomerular Filtration Rate 62 mL/min (>60); Est Glom Filt Rate - Afr Amer 75 mL/min (>60); Globulin 3.9 g/dL (2.2-4.2); Glucose 90 mg/dL (74-106); High Density Lipoprotein 46 mg/dL; Potassium 4.4 mmol/L (3.5-5.1); Protein, Total 7.6 g/dL (6.4-8.2); Sodium Level 137 mmol/L (136-145); Triglycerides 42 mg/dL; Very Low Density Lipoprotein 8 mg/dL (5-40)
[2023-07-13 12:16] LABS: Protein, Urine (Random) < 6.0 mg/dL (<11.9)
== END | disposition home or self-care (01) ==
LOC: MFPLAB 08:07
PROVIDERS: PCP Family Medicine; Visit Provider Family Medicine
DX: E78.00 Pure hypercholesterolemia, unspecified (principal); N18.30 Chronic kidney disease, stage 3 unspecified
CPT/HCPCS: 36415; 80053; 80061; 81001; 82570; 84156; 85025

== ENCOUNTER → 2023-10-19 | Outpatient (CLI) | payer MEDICARE, SELFPAY ==
--- NOTE | 2023-10-19 09:29 | RAD_ITS ---
STUDY: X-RAY - LEFT FOOT CLINICAL: Male, 68 years old. Left heel pain. TECHNIQUE: 3 views of the left foot. COMPARISON: None. FINDINGS: Intact talus, calcaneus, and tarsal bones. There is a small plantar calcaneal spur. Normal visualized subtalar, talonavicular, calcaneocuboid, tarsal and tarsometatarsal articulations. Normal metatarsi. Normal metatarsophalangeal joint of the great toe. Normal tibial and fibular sesamoid bones. Normal interphalangeal joint of the great toe. Normal phalanges of the great toe. Normal second through fifth metatarsophalangeal joints. Normal interphalangeal joints and phalanges of the lesser toes. The soft tissue structures are unremarkable. There is no demonstrated fracture. RAD/Foot min 3 Views IMPRESSION: Small plantar calcaneal spur. No demonstrated fracture. Electronically Signed: Coy Mcneil MD at 8:48 EDT ,
== END | disposition home or self-care (01) ==
PROVIDERS: PCP Family Medicine; Referring Provider Family Medicine; Visit Provider Family Medicine
DX: M79.672 Pain in left foot (principal)
CPT/HCPCS: 73630

== ENCOUNTER → 2024-01-11 | Outpatient (CLI) | payer MEDICARE, SELFPAY ==
[2024-01-11 10:17] LABS: Absolute Lymphocyte Count 1.42 X10^3/uL (0.83-4.51); Absolute Neutrophil Count 3.3 X10^3/uL (2.0-7.7); Basophil# 0.05 X10^3/uL; Basophil% 0.8 % (0-1); Eosinophils% 3.4 % (0-5); Hematocrit 44.4 % (40-54); Hemoglobin 14.6 g/dL (13.0-16.5); Lymphocyte # 1.42 X10^3/ul (0.83-4.51); Lymphocyte % 23.9 % (19-41); Mean Corp Hgb Conc 32.9 g/dL (32-36); Mean Corpuscular Hgb 29.7 pg (27.0-32.0); Mean Corpuscular Volume 90.4 fL (80-94); Mean Platelet Vol. 9.9 fl (6.2-12.0); Monocyte# 0.99 X10^3/uL; Monocyte% 16.6 % (0-10); NRBC Flagged by Analyzer 0 % (0-5); Neutrophil # 3.28 X10^3/uL (2.7-7.7); Neutrophil % 55.1 % (47-70); Platelet Count 216 K/mm3 (150-450); RBC Distribution Width CV 12.5 % (11.6-14.6); RBC Distribution Width SD 40.9 fl (35.1-43.9); Red Blood Count 4.91 M/mm3 (4.6-6.2)
[2024-01-11 10:30] LABS: Protein, Urine (Random) 14.6 mg/dL (<11.9); Protein:Creat Ratio 76 mg/g CRE (0-200)
[2024-01-11 10:54] LABS: AST(SGOT) 31 U/L (15-37); Alanine Aminotransfer ALT/SGPT 42 U/L (16-61); Albumin, Serum 3.5 g/dL (3.2-5.0); Alkaline Phosphatase 75 U/L (45-117); Anion Gap 5 (5-15); BUN 14 mg/dL (7-18); BUN/Creat Ratio 11.4 RATIO (10-20); Calcium,Total 8.9 mg/dL (8.5-10.1); Chloride 107 mmol/L (98-107); Cholesterol 121 mg/dL (200); Creatinine, Serum 1.23 mg/dL (0.70-1.30); EST Glomerular Filtration Rate 63 mL/min (>60); Est Glom Filt Rate - Afr Amer 76 mL/min (>60); Globulin 3.5 g/dL (2.2-4.2); Glucose 116 mg/dL (74-106); High Density Lipoprotein 39 mg/dL; PSA,Total - Annual Screen 3.36 ng/mL (0.00-4.00); Sodium Level 138 mmol/L (136-145); Triglycerides 79 mg/dL; Very Low Density Lipoprotein 16 mg/dL (5-40)
== END | disposition home or self-care (01) ==
LOC: MFPLAB 09:00
PROVIDERS: PCP Family Medicine; Visit Provider Family Medicine
DX: R79.89 Other specified abnormal findings of blood chemistry (principal); N18.30 Chronic kidney disease, stage 3 unspecified; Z12.5 Encounter for screening for malignant neoplasm of prostate; E78.00 Pure hypercholesterolemia, unspecified
CPT/HCPCS: 36415; 80053; 80061; 82570; 84153; 84156; 85025; G0103

== ENCOUNTER → 2024-01-17 | Outpatient (CLI) | payer MEDICARE, SELFPAY ==
[2024-01-17 10:40] LABS: Hemoglobin A1c 5.2 % (3.8-5.6)
== END | disposition home or self-care (01) ==
LOC: MTLAB 07:10
PROVIDERS: PCP Family Medicine; Referring Provider Family Medicine; Visit Provider Family Medicine
DX: R73.09 Other abnormal glucose (principal)
CPT/HCPCS: 36415; 83036

== ENCOUNTER → 2024-03-09 | Outpatient (CLI) | payer MEDICARE, SELFPAY ==
--- NOTE | 2024-03-09 14:49 | ECHOD_ITS ---
Reason For Study: MURMUR Procedure This was a 2D Doppler, Color Flow transthoracic echocardiogram. Exam performed in department. Left Ventricle Normal LV size. The estimated ejection fraction is 65 %. No evidence for diastolic dysfunction. No regional wall motion abnormalities noted. Right Ventricle Normal RV size. Normal systolic function. Atria The left atrium is mildly enlarged. Normal right atrium. No doppler evidence for ASD. Mitral Valve Moderate mitral valve prolapse, posterior leaflet. There is no mitral valve stenosis. Severe (4+) eccentric mitral valve insufficiency. Tricuspid Valve There is no tricuspid stenosis. Trivial tricuspid valve insufficiency. Pulmonary artery systolic pressure is 25 mmHg. Aortic Valve Trisinus/trileaflet aortic valve. There is no aortic stenosis. No aortic valve insufficiency. Pulmonic Valve There is no pulmonic valvular stenosis. Trivial pulmonic valve insufficiency. Great Vessels Normal aortic root. Pericardium/Pleural No pericardial effusion. MMode/2D Measurements & Calculations LVIDd: 5.7 cm IVSd: 1.3 cm Ao root diam: 3.7 cm LVIDs: 4.0 cm LVPWd: 1.3 cm RVDd: 3.4 cm FS: 29.2 % LAV(MOD-bp): 98.5 ml LVAd ap4: 45.9 cm2 LVAd ap2: 33.0 cm2 LAV(MOD-bp) Indexed: 46.7 ml/m2 LVLd ap4: 9.2 cm LVLd ap2: 8.6 cm LAV(MOD-sp2): 92.1 ml EDV(MOD-sp4): 182.7 ml EDV(MOD-sp2): 105.7 ml LAV(MOD-sp4): 94.0 ml EDV(sp4-el): 195.5 ml EDV(sp2-el): 107.3 ml LVAs ap4: 23.3 cm2 LVAs ap2: 18.3 cm2 LVLs ap4: 7.4 cm LVLs ap2: 7.1 cm ESV(MOD-sp4): 60.4 ml ESV(MOD-sp2): 40.1 ml ESV(sp4-el): 62.2 ml ESV(sp2-el): 40.1 ml EF(MOD-sp4): 67.0 % EF(MOD-sp2): 62.1 % EF(sp4-el): 68.2 % SV(MOD-sp4): 122.3 ml SV(MOD-sp2): 65.6 ml SV(sp4-el): 133.2 ml LA dimension(2D): 5.0 cm LA A4 area: 26.0 cm2 RA A4 area: 16.1 cm2 TAPSE: 2.9 cm Time Measurements MV dec time: 0.27 sec Doppler Measurements & Calculations MV E max alex: 143.0 cm/sec Lat Peak E' Alex: 12.5 cm/sec Med Peak E' Alex: 12.1 cm/sec MV A max alex: 102.7 cm/sec E/E' lat: 11.4 E/E' med: 11.8 MV E/A: 1.4 MV V2 max: 178.5 cm/sec MV P1/2t max alex: 178.5 cm/sec Ao V2 max: 124.1 cm/sec MV max P.8 mmHg MV P1/2t: 79.7 msec Ao max P.2 mmHg MV V2 mean: 76.3 cm/sec MV dec slope: 656.0 cm/sec2 Ao V2 mean: 72.8 cm/sec MV mean P.0 mmHg Ao mean P.5 mmHg MV V2 VTI: 47.0 cm MVA(P1/2t): 2.8 cm2 Ao V2 VTI: 21.3 cm AV (velocity ratio): 0.88 LV V1 max: 105.8 cm/sec MR max alex: 444.9 cm/sec PA V2 max: 106.4 cm/sec LV V1 max P.5 mmHg MR max P.2 mmHg PA V2 mean: 72.3 cm/sec LV V1 mean P.4 mmHg MR mean alex: 365.4 cm/sec LV V1 mean: 70.4 cm/sec MR mean P.1 mmHg LV V1 VTI: 18.6 cm MR VTI: 127.9 cm TR max alex: 231.3 cm/sec TR max P.4 mmHg ECHO/Echo Complete Interpretation Summary The estimated ejection fraction is 65 %. No evidence for diastolic dysfunction. Moderate mitral valve prolapse, posterior leaflet Severe (4+) eccentric mitral valve insufficiency. Ordering Physician: Richard Mccall Referring Physician: Richard Mccall Performed By: Marisa Smith, RDNARCISO, RVT
== END | disposition home or self-care (01) ==
LOC: CVS 14:48
PROVIDERS: PCP Family Medicine; Referring Provider Family Medicine; Visit Provider Family Medicine
DX: R01.1 Cardiac murmur, unspecified (principal)
CPT/HCPCS: 93306

== ENCOUNTER → 2024-04-27 | Outpatient (CLI) | payer MEDICARE, SELFPAY ==
[2024-04-27 08:43] LABS: Anion Gap 3 (5-15); BUN 19 mg/dL (7-18); BUN/Creat Ratio 13.9 RATIO (10-20); Calcium,Total 8.9 mg/dL (8.5-10.1); Chloride 106 mmol/L (98-107); Creatinine, Serum 1.37 mg/dL (0.70-1.30); EST Glomerular Filtration Rate 55 mL/min (>60); Est Glom Filt Rate - Afr Amer 67 mL/min (>60); Glucose 100 mg/dL (74-106); Potassium 4.2 mmol/L (3.5-5.1); Sodium Level 139 mmol/L (136-145)
== END | disposition home or self-care (01) ==
LOC: LAB 06:59
PROVIDERS: PCP Family Medicine; Referring Provider Internal Medicine Cardiovascular Disease; Visit Provider Internal Medicine Cardiovascular Disease
DX: I34.1 Nonrheumatic mitral (valve) prolapse (principal); I34.0 Nonrheumatic mitral (valve) insufficiency; R01.1 Cardiac murmur, unspecified
CPT/HCPCS: 36415; 80048

== ENCOUNTER → 2024-05-30 | Outpatient (CLI) | payer MEDICARE, SELFPAY ==
--- NOTE | 2024-05-30 09:07 | ECHOTEE_ITS ---
Reason For Study: MVP Medication SHARRI probe 6VT-D (SN [id number]) passed without difficulty. No complications were noted. Cetacaine Topical Crum Lynne given X3 orally. Versed 2 mg given slow IVP. Demerol 50 mg given slow IVP. Left Ventricle Normal LV size. Left ventricular systolic function is normal. The left ventricular ejection fraction is 65 %. No regional wall motion abnormalities noted. Right Ventricle Normal RV size. Normal systolic function. Atria Bubble contrast study negative for right to left interatrial shunt. The left atrium is mildly enlarged. No thrombus is detected in the left atrial appendage. Normal right atrium. Mitral Valve Bileaflet diffuse mitral valve thickening. Myxomatous mitral valve. Moderate mitral valve prolapse, posterior leaflet. Moderately severe (3+) eccentric mitral valve insufficiency. Tricuspid Valve Normal tricuspid valve. Aortic Valve Trisinus/trileaflet aortic valve. Pulmonic Valve Normal pulmonic valve. Vessels Normal aortic root. Normal arch. The pulmonary artery is normal size. Pulmonary venous flow normal. ECHO/Echo Transesophageal (SHARRI) Interpretation Summary Normal LV size. Left ventricular systolic function is normal. The left ventricular ejection fraction is 65 %. Bileaflet diffuse mitral valve thickening. Moderate mitral valve prolapse, posterior leaflet Moderately severe (3+) eccentric mitral valve insufficiency. Ordering Physician: Angeli Restrepo Referring Physician: Angeli Restrepo Performed By: Stephania Morales, RDNARCISO
== END | disposition home or self-care (01) ==
LOC: CVS 09:06
PROVIDERS: PCP Family Medicine; Referring Provider Internal Medicine Cardiovascular Disease; Visit Provider Internal Medicine Cardiovascular Disease
DX: I34.1 Nonrheumatic mitral (valve) prolapse (principal); I34.0 Nonrheumatic mitral (valve) insufficiency; R01.1 Cardiac murmur, unspecified
CPT/HCPCS: 93312; 93320; 93325; A4216

== ENCOUNTER → 2024-07-27 | Outpatient (CLI) | payer MEDICARE, SELFPAY ==
[2024-07-27 08:13] LABS: Anion Gap 3 (5-15); BUN 15 mg/dL (7-18); BUN/Creat Ratio 10.8 RATIO (10-20); Calcium,Total 9.1 mg/dL (8.5-10.1); Chloride 107 mmol/L (98-107); Creatinine, Serum 1.39 mg/dL (0.70-1.30); EST Glomerular Filtration Rate 54 mL/min (>60); Est Glom Filt Rate - Afr Amer 66 mL/min (>60); Glucose 109 mg/dL (74-106); Potassium 4.3 mmol/L (3.5-5.1); Sodium Level 140 mmol/L (136-145)
== END | disposition home or self-care (01) ==
LOC: LAB 06:55
PROVIDERS: PCP Family Medicine; Referring Provider Internal Medicine Cardiovascular Disease; Visit Provider Internal Medicine Cardiovascular Disease
DX: R01.1 Cardiac murmur, unspecified (principal); E78.00 Pure hypercholesterolemia, unspecified; I34.1 Nonrheumatic mitral (valve) prolapse; I34.0 Nonrheumatic mitral (valve) insufficiency
CPT/HCPCS: 36415; 80048

== ENCOUNTER → 2024-08-02 | Outpatient (CLI) | payer MEDICARE, SELFPAY ==
[2024-08-02 10:49] LABS: Absolute Lymphocyte Count 2.04 X10^3/uL (0.83-4.51); Absolute Neutrophil Count 4.8 X10^3/uL (2.0-7.7); Basophil# 0.05 X10^3/uL; Basophil% 0.6 % (0-1); Eosinophils% 3.6 % (0-5); Hematocrit 45.7 % (40-54); Hemoglobin 15.1 g/dL (13.0-16.5); Lymphocyte # 2.04 X10^3/ul (0.83-4.51); Lymphocyte % 24.2 % (19-41); Mean Corpuscular Volume 90.7 fL (80-94); Mean Platelet Vol. 10.3 fl (6.2-12.0); Monocyte# 1.19 X10^3/uL; Monocyte% 14.1 % (0-10); NRBC Flagged by Analyzer 0 % (0-5); Neutrophil % 56.9 % (47-70); Platelet Count 218 K/mm3 (150-450); RBC Distribution Width CV 12.1 % (11.6-14.6); RBC Distribution Width SD 40.3 fl (35.1-43.9); Red Blood Count 5.04 M/mm3 (4.6-6.2); White Blood Count 8.4 K/mm3 (4.4-11.0)
[2024-08-02 11:01] LABS: PTHIN 40.5 pg/mL (18.4-80.1)
[2024-08-02 11:33] LABS: Microalbumin,Random Urine < 5.0 mg/L (NO RANGE EST.); Protein, Urine (Random) 12.5 mg/dL (<11.9); Protein:Creat Ratio 79 mg/g CRE (0-200)
[2024-08-02 11:44] LABS: ALB/GLOB Ratio 0.9 RATIO (0.9-2.4); AST(SGOT) 35 U/L (15-37); Alanine Aminotransfer ALT/SGPT 44 U/L (16-61); Albumin, Serum 3.6 g/dL (3.2-5.0); Alkaline Phosphatase 73 U/L (45-117); Anion Gap 5 (5-15); BUN 17 mg/dL (7-18); Calcium,Total 9.1 mg/dL (8.5-10.1); Chloride 104 mmol/L (98-107); Cholesterol 139 mg/dL (200); Creatinine, Serum 1.42 mg/dL (0.70-1.30); EST Glomerular Filtration Rate 53 mL/min (>60); Est Glom Filt Rate - Afr Amer 64 mL/min (>60); Globulin 3.8 g/dL (2.2-4.2); Glucose 103 mg/dL (74-106); High Density Lipoprotein 43 mg/dL; Phosphorus 2.6 mg/dL (2.5-4.9); Potassium 4.2 mmol/L (3.5-5.1); Protein, Total 7.4 g/dL (6.4-8.2); Sodium Level 136 mmol/L (136-145); Triglycerides 80 mg/dL; Very Low Density Lipoprotein 16 mg/dL (5-40)
[2024-08-07 18:11] LABS: Hemoglobin A1c 5.6 % (3.8-5.6)
== END | disposition home or self-care (01) ==
LOC: MTLAB 07:12
PROVIDERS: PCP Family Medicine; Referring Provider Family Medicine; Visit Provider Family Medicine
DX: E78.00 Pure hypercholesterolemia, unspecified (principal); N18.30 Chronic kidney disease, stage 3 unspecified; R73.09 Other abnormal glucose
CPT/HCPCS: 36415; 80053; 80061; 82043; 82306; 82570; 83036; 83970; 84100; 84156; 85025

== ENCOUNTER → 2024-09-25 | Outpatient (CLI) | payer MEDICARE, SELFPAY ==
--- NOTE | 2024-09-25 09:59 | ECHOD_ITS ---
Reason For Study Reason For Study: Mitral Valve Prolapse Procedure This was a 2D Doppler, Color Flow transthoracic echocardiogram. Exam performed in department. Left Ventricle Mild concentric left ventricular hypertrophy. Mildly dilated left ventricle. Left ventricular systolic function is normal. The left ventricular ejection fraction is 65 %. Stage 1 diastolic dysfunction. Right Ventricle Normal right ventricle. Atria The left atrium is severely enlarged. Normal right atrium. Mitral Valve Posterior mitral valve leaflet prolapse with malcoaptation. Severe anteriorly directed mitral valve regurgitation. Tricuspid Valve Mild tricuspid valve insufficiency. Normal pulmonary artery pressure. Aortic Valve Trisinus/trileaflet aortic valve. Trivial aortic valve insufficiency. Pulmonic Valve The pulmonic valve is not well visualized. Great Vessels Normal sized aortic root. Pericardium/Pleural No pericardial effusion. MMode/2D Measurements & Calculations LVIDd: 5.9 cm IVSd: 1.2 cm Ao root diam: 3.6 cm LVIDs: 3.2 cm LVPWd: 1.3 cm RVDd: 4.4 cm FS: 45.4 % LAV(MOD-bp): 93.7 ml LVAd ap4: 43.4 cm2 SV(MOD-sp4): 115.1 ml LAV(MOD-bp) Indexed: 44.3 ml/m2 LVLd ap4: 8.9 cm SI(MOD-sp4): 54.5 ml/m2 LAV(MOD-sp2): 110.0 ml EDV(MOD-sp4): 165.7 ml LAV(MOD-sp4): 77.3 ml EDV(sp4-el): 179.0 ml LVAs ap4: 21.1 cm2 LVLs ap4: 7.3 cm ESV(MOD-sp4): 50.6 ml ESV(sp4-el): 52.2 ml EF(MOD-sp4): 69.5 % EF(sp4-el): 70.9 % SV(sp4-el): 126.9 ml LA A4 area: 23.8 cm2 LA dimension(2D): 5.0 cm RA A4 area: 19.0 cm2 TAPSE: 2.8 cm Time Measurements MV dec time: 0.25 sec Doppler Measurements & Calculations MV E max alex: 129.5 cm/sec Lat Peak E' Alex: 12.2 cm/sec Med Peak E' Alex: 13.1 cm/sec MV A max alex: 95.9 cm/sec E/E' lat: 10.7 E/E' med: 9.9 MV E/A: 1.4 MV V2 max: 153.7 cm/sec MV P1/2t max alex: 155.0 cm/sec Ao V2 max: 124.5 cm/sec MV max P.5 mmHg MV P1/2t: 87.9 msec Ao max P.2 mmHg MV V2 mean: 74.8 cm/sec Ao V2 mean: 85.3 cm/sec MV mean P.8 mmHg MV dec slope: 516.4 cm/sec2 Ao mean P.3 mmHg MV V2 VTI: 49.5 cm MVA(P1/2t): 2.5 cm2 Ao V2 VTI: 19.5 cm AV (velocity ratio): 1.1 LV V1 max: 117.4 cm/sec MR max alex: 514.4 cm/sec PA V2 max: 100.9 cm/sec LV V1 max P.5 mmHg MR max P.9 mmHg LV V1 mean P.4 mmHg MR mean alex: 399.2 cm/sec LV V1 mean: 68.7 cm/sec MR mean P.6 mmHg LV V1 VTI: 21.3 cm MR VTI: 165.0 cm TR max alex: 244.6 cm/sec TR max P.9 mmHg ECHO/Echo Complete Interpretation Summary Mild concentric left ventricular hypertrophy. Mildly dilated left ventricle. The left ventricular ejection fraction is 65 %. Stage 1 diastolic dysfunction. The left atrium is severely enlarged. Mild tricuspid valve insufficiency. Posterior mitral valve leaflet prolapse with malcoaptation. Severe anteriorly d irected mitral valve regurgitation. Ordering Physician: Angeli Restrepo Referring Physician: Richard Mccall Performed By: Rigoberto Albrecht RCS
--- NOTE | 2024-09-26 10:07 | STRESSREP_ITS ---
Stress Test Report Date: 09/26/2024 Procedure: Pharmacologic stress nuclear imaging study Indications: Coronary artery disease Consent: Per the patient Procedure: The patient underwent pharmacologic (Regadenoson 0.4mg ) evaluation with a peak heart rate of 76 beats per minute (50%predicted maximal heart rate) and a peak blood pressure of 110/68 mmHg. The baseline ECG demonstrated sinus rhythm. The peak pharmacologic ECG no ischemic changes. There were no cardiac dysrhythmias pretest, during pharmacologic infusion, or recovery. There was no complaint of chest discomfort during pharmacologic infusion or recovery. The patient was injected with 11.5 millicuries of technetium 99m Cardiolite and subsequently rest SPECT Cardiolite nuclear imaging was obtained in the horizontal long, vertical long, and short axis views. The patient underwent pharmacologic (Regadenoson) evaluation. The patient was injected with 36.0 millicuries of technetium 99m Cardiolite and subsequently stress SPECT Cardiolite nuclear imaging was obtained in the horizontal long, vertical long, and short axis views. A gated Cardiolite study at peak stress was obtained. The examination was stopped secondary to completion of protocol. Rest and stress SPECT Cardiolite nuclear imaging status post realignment, and normalization demonstrate large anterior, apical and inferoapical fixed defect that suggests prior infarct. No significant dino-infarct ischemia. Gated images reveal anterior and apical severe hypokinesis to akinesis. The reported LVEF is 34%. Impression: 1. Pharmacologic (Regadenoson) evaluation 2. Peak pharmacologic ECG with no ischemic changes. 3. There were no cardiac dysrhythmias pretest, during pharmacologic infusion, or recovery. 5. 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 6. The gated Cardiolite study reports an LVEF of 34%. This note was generated with [employer] software. It may contain incorrect words, spelling, and punctuation that were not noted in checking the note before signing.
== END | disposition home or self-care (01) ==
LOC: CVS 09:59
PROVIDERS: PCP Family Medicine; Referring Provider Internal Medicine Cardiovascular Disease; Visit Provider Internal Medicine Cardiovascular Disease
DX: I34.1 Nonrheumatic mitral (valve) prolapse (principal); R01.1 Cardiac murmur, unspecified; I34.0 Nonrheumatic mitral (valve) insufficiency
CPT/HCPCS: 93306

== ENCOUNTER → 2024-10-19 | Outpatient (CLI) | payer MEDICARE, SELFPAY ==
[2024-10-19 08:23] LABS: Anion Gap 9 (5-15); BUN 15 mg/dL (4-19); BUN/Creat Ratio 11.4 RATIO (10-20); Carbon Dioxide 22.8 mmol/L (21.0-32.0); Chloride 107 mmol/L (98-108); Creatinine, Serum 1.32 mg/dL (0.70-1.20); EST Glomerular Filtration Rate 59 (>60); Glucose 98 mg/dL (70-99); Potassium 4.1 mmol/L (3.3-5.1); Sodium Level 139 mmol/L (133-145)
== END | disposition home or self-care (01) ==
PROVIDERS: PCP Family Medicine; Referring Provider Internal Medicine Cardiovascular Disease; Visit Provider Internal Medicine Cardiovascular Disease
DX: N18.9 Chronic kidney disease, unspecified (principal)
CPT/HCPCS: 36415; 80048

== ENCOUNTER 2024-11-06 08:35 | Day surgery (SDC) | payer MEDICARE, SELFPAY ==
--- NOTE | 2024-10-31 11:18 | RAD_ITS ---
PROCEDURE: CHEST PA AND LATERAL 10/31/2024 REASON FOR EXAM: PRE-PROCEDURE DIAGNOSTIC TECHNIQUE: Frontal and lateral views of the chest. FINDINGS: The lungs appear clear. Pulmonary vascularity appears within limits. No pleural effusion. The cardiac and mediastinal contours appear within limits. The visualized osseous structures appear within limits. RAD/Chest PA and Lateral IMPRESSION: No evidence of acute disease. Reading Location: [id number]
[2024-10-31 12:25] LABS: Absolute Lymphocyte Count 1.45 X10^3/uL (0.83-4.51); Absolute Neutrophil Count 2.9 X10^3/uL (2.0-7.7); Basophil# 0.04 X10^3/uL; Basophil% 0.7 % (0-1); Eosinophils% 3.7 % (0-5); Hematocrit 44.4 % (40-54); Hemoglobin 14.9 g/dL (13.0-16.5); Lymphocyte # 1.45 X10^3/ul (0.83-4.51); Lymphocyte % 26.6 % (19-41); Mean Corp Hgb Conc 33.6 g/dL (32-36); Mean Corpuscular Hgb 30.2 pg (27.0-32.0); Mean Corpuscular Volume 90.1 fL (80-94); Mean Platelet Vol. 9.9 fl (6.2-12.0); Monocyte# 0.82 X10^3/uL; NRBC Flagged by Analyzer 0 % (0-5); Neutrophil # 2.92 X10^3/uL (2.7-7.7); Neutrophil % 53.6 % (47-70); Platelet Count 226 K/mm3 (150-450); RBC Distribution Width CV 11.9 % (11.6-14.6); RBC Distribution Width SD 39.3 fl (35.1-43.9); Red Blood Count 4.93 M/mm3 (4.6-6.2); White Blood Count 5.5 K/mm3 (4.4-11.0)
[2024-10-31 12:36] LABS: Prothrombin Time (Protime)PT. 13.2 SECONDS (11.7-14.9)
[2024-10-31 13:18] LABS: Anion Gap 9 (5-15); BUN 17 mg/dL (4-19); BUN/Creat Ratio 13.9 RATIO (10-20); Calcium,Total 9.2 mg/dL (7.6-11.0); Carbon Dioxide 24.8 mmol/L (21.0-32.0); Chloride 105 mmol/L (98-108); Creatinine, Serum 1.22 mg/dL (0.70-1.20); EST Glomerular Filtration Rate 65 (>60); Glucose 96 mg/dL (70-99); Potassium 4.9 mmol/L (3.3-5.1); Sodium Level 138 mmol/L (133-145)
[2024-11-05 13:39] VITALS: BMI 30.8
[2024-11-06 11:42] LABS: Blood Gas Specimen Type VEN; O2 Delivery Device Not entered; SITE Not entered; VBG BASE EXCESS 4 mmol/L (-1.0-3.5); VBG Bicarbonate 29 mmol/L (22-26); VBG PO2 36 mmHg (25-40); VBG SO2 67 % (50-70); VBG TCO2 31 mmol/L (23-33); VBG pCO2 49.9 mmHg (41-51); VBG pH 7.38 (7.32-7.42)
[2024-11-06 11:48] LABS: Base Excess 4 mmol/L (-2 to +2); Bicarbonate 29.3 mmol/L (22-26); Blood Gas Specimen Type ART; Mode Not entered; O2 Delivery Device Not entered; PO2 59 mmHG (75-100); SITE Not entered; SO2 88 % (95-99); Total Carbon Dioxide 31 mmol/L; pCO2 54.1 mmHg (35-45); pH 7.34 (7.35-7.45)
[2024-11-06 11:54] LABS: Blood Gas Specimen Type VEN; O2 Delivery Device Not entered; SITE Not entered; VBG BASE EXCESS 4 mmol/L (-1.0-3.5); VBG Bicarbonate 29 mmol/L (22-26); VBG PO2 34 mmHg (25-40); VBG SO2 62 % (50-70); VBG TCO2 31 mmol/L (23-33); VBG pCO2 50.4 mmHg (41-51); VBG pH 7.37 (7.32-7.42)
[2024-11-06 12:00] LABS: Blood Gas Specimen Type VEN; O2 Delivery Device Not entered; SITE Not entered; VBG BASE EXCESS 2 mmol/L (-1.0-3.5); VBG Bicarbonate 28 mmol/L (22-26); VBG PO2 38 mmHg (25-40); VBG SO2 67 % (50-70); VBG TCO2 30 mmol/L (23-33); VBG pCO2 51.7 mmHg (41-51); VBG pH 7.34 (7.32-7.42)
--- NOTE | 2024-11-06 12:09 | CL.D_ITS ---
Patient Name: SAADIA FLORES Study Date: 11/06/2024 Performing: Angeli Restrepo MD Ht: 70 inches 177.8 cm : 1955 Wt: 214.99 lbs 97.52 kg Age: 69 Gender: male BSA: 2.15 PROCEDURE(S) PERFORMED DC05-([id number])RHC/LHC/COR/LV CLINICAL PROFILE AND INDICATIONS Indications: Valvular Disease Heart Failure: None Stress/Imaging Stress/Image Study Performed: No CAD Presentations: No Sxs, no angina. CONCLUSIONS Minimal 10% Mid LAD Severe MR LVEF 60% Right heart pressures - Normal CO 6.73 L/min; CI 3.13 L/min/m?? RECOMMENDATIONS Surgery consult for valvular disease DESCRIPTION OF PROCEDURE The patient arrived to the procedure lab. The risks and benefits of the procedure as well as a full description of our services here and current unavailability of surgical backup were fully explained to the patient and/or their significant other prior to the catheterization. The Timeout was completed, verifying the correct patient and procedure. The patient's procedural site was prepped and draped in the usual fashion. Local anesthetic was given subcutaneously to right brachial region with Marcaine 1%. Local anesthetic was given subcutaneously to right radial region with Lidocaine 2%. Using a modified Seldinger technique, Venous access was obtained via the right brachiocephalic vein, a 7Fr sheath was inserted. A 7Fr thermal dilution catheter was inserted and right heart pressures were recorded, it was then advanced to PA position for cardiac outputs. O2 saturations were then obtained. Right Coronary Artery selective angiography was then performed in multiple views using a 5 Fr. 4.0 [place] catheter. Left Coronary Artery selective angiography was performed in multiple views using a 5 Fr. JL3.5 catheter. Left Ventriculography was performed in GUNN projection using a 5 Fr. Pigtail catheter. LV to AO pullback pressures were then recorded.The venous sheath was then pulled and manual compression applied until hemostasis achieved. The arterial sheath was pulled and a TR Band was applied for hemostasis CORONARY ANGIOGRAPHY DOMINANCE: Right Dominant LEFT HEART ASSESSMENT Left Ventricular Ejection Fraction: by LV Gram 60 % LVEDP: 27 mmHg RIGHT HEART ASSESSMENT Manuela CO: 6.73 Manuela CI: 3.13 PW: 17 PA: 33/17 24 RV: 38/9 16 RA: 12 PVR: 83 SVR: 880 LEFT MAIN: Angiographically normal LEFT ANTERIOR DESCENDING ARTERY: LAD: Tubular 10% Mid lesion in LAD CIRCUMFLEX ARTERY: Angiographically normal RAMUS: Angiographically normal RIGHT CORONARY ARTERY: Angiographically normal VALVE FINDINGS: Mitral Valve Insufficiency - Grade 4 COMPLICATIONS No Complications PROCEDURE MEDICATIONS Versed 1 mg IV Fentanyl 50 mcg IV Versed 1 mg IV Fentanyl 25 mcg IV Oxygen: 2 L/min via nasal cannula Aspirin (325mg) 1 Tabs PO @ 11/06/2024 09:27:44 Heparin given IA 11/06/2024 11:18:17 Verapamil 2.5mg, Ntg 200mcgs, 2000 units of Heparin given IA 11/06/2024 11:18:17 SUMMARY OF HEMODYNAMIC DATA Time AIR REST ECG 09:07:07 PW (17) PV 11:24:40 PA / (24) PA 11:25:14 RV 38/9, 16 11:26:37 RA (12) SV 11:30:03 AO 100/73 (86) SA 11:35:57 AO 107/72 (89) 11:40:16 LV 123/10, 28 11:46:58 LV 120/10, 25 11:47:07 LV 105/22, 28 11:48:25 LVp 102/19, 27 11:48:42 AOp 106/73 (89) 11:48:49 Type SV CO (l/m) CI (l/m/ HR Time AIR REST Manuela 114.00 6.73 3.13 59 09:07:07 Label % O2 Pres/Loc Time AIR REST PA 67 PA 12:02:58 AO 88 PV 12:03:03 RV 62 12:03:17 RA 67 12:03:23 Signed By Angeli Restrepo MD On 11/06/2024 12:09:11 Angeli Restrepo MD
== END 2024-11-06 14:00 | disposition home or self-care (01) ==
PROVIDERS: PCP Family Medicine; Referring Provider Internal Medicine Cardiovascular Disease; Visit Provider Internal Medicine Cardiovascular Disease
DX: I34.0 Nonrheumatic mitral (valve) insufficiency (principal); I34.1 Nonrheumatic mitral (valve) prolapse; M81.0 Age-related osteoporosis without current pathological fracture; E78.00 Pure hypercholesterolemia, unspecified; Z86.711 Personal history of pulmonary embolism; Z86.718 Personal history of other venous thrombosis and embolism; Z79.899 Other long term (current) drug therapy
CPT/HCPCS: 36415; 71046; 80048; 82803; 85025; 85610; 93460; 99152; 99153; C1894; Q9967; C1751; C1769

== ENCOUNTER → 2025-01-16 | Outpatient (CLI) | payer MEDICARE, SELFPAY ==
--- NOTE | 2025-01-16 13:50 | PCM.CR.HP ---
CR - History & Physical General Arrival date:: 01/16/25 Arrival time:: 09:48 Date of Referral:: 01/07/25 Date of CR Evaluation:: 01/16/25 Referring Physician: Dr Restrepo Primary Diagnosis: Mitral Valve repair History of Present Cardiac Event Onset Date Current stable Angina Pectoris:: No Acute Myocardial Infarction within 12 months:: No Coronary Artery Bypass Graft:: No Heart valve replacement or repair:: Yes (mitral valve) PTCA or coronary stenting:: No Heart or Heart-Lung Transplant:: No Heart Failure EF <35%:: No Medications Ambulatory Orders ?Medication ?Instructions ?Recorded atorvastatin 10 mg tablet 10 mg PO QHS CHOLESTEROL 10/19/22 meloxicam 15 mg tablet 15 mg PO DAILY PAIN 10/19/22 tamsulosin 0.4 mg capsule 0.4 mg PO QHS URINE 11/10/22 multivitamin 1 tab PO QAM 04/18/24 aspirin 81 mg tablet,delayed 81 mg PO DAILY 11/06/24 release (Adult Aspirin Regimen) lisinopril 20 mg tablet 10 mg PO QDAY 01/07/25 oxycodone 5 mg tablet 5 mg PO Q6H PRN 01/07/25 Allergies Allergies No Known Allergies Allergy (Verified 01/07/25 08:08) Sleep Disorder Evaluation Hx of Sleep Apnea: No Do you snore loudly (louder than talking or can be heard through closed doors)?: Yes Do you often feel tired/ fatigued/ sleepy during daytime?: No Has anyone observed you stop breathing during sleep?: No History of Hypertension (for STOP score): No STOP Results: Negative Advance Directives Advanced Directives Advance Directives: Yes Living Will Living Will: Yes Power of Apparel Sales Leader, Durable Power of Apparel Sales Leader for Healthcare: Yes Able to identify name of POA?: Yes Name of Medical Power of Apparel Sales Leader: Jaymie Calderon Information Education/Medical Records Advanced Care Planning Booklet Provided: Patient Declined Advance Directives on File: No (pt states he will bring them in) Request family franchise sales representative bring in a Copy: No Reason not requested: Family not present Advanced Directives Advanced Directives Do you have a Healthcare Power of Apparel Sales Leader?: Yes Living Will: Yes Advance Directives on File: No (pt states he will bring them in) Past Medical History Covid-19 Screening Physicial Symptoms Fever: No Unexplained muscle aches: No Current respiratory symptoms: No Upper respiratory infections symptoms: No Gastro-intestinal symptoms: No [id number] symptoms: No Other Clinical Concerns Has tested positive for COVID-19 in last 30 days: No Exposure Risk Had contact w/person w/symptoms or Covid-19 (+) last 14 days: No Has High Risk Exposures ID'd by Health dept/Inf Control team: No Pertinent Comorbidities 65 years or older:: Yes Lives in Assisted Living facility:: No Has a chronic lung disease or moderate to severe asthma:: No Has a serious heart condition:: No Immunocompromised:: No Severely obese (Body Mass Index of 40 or higher):: No Diabetic:: No Has chronic kidney disease undergoing dialysis:: No Has liver disease:: No Past Medical Illness Past Medical History Severe mitral valve regurgitation I34.0 Left ventricular dilatation I51.7 Heart murmur R01.1 Choledocholithiasis K80.50 Jaundice R17 Elevated alkaline phosphatase level R74.8 Elevated liver transaminase level R74.01 Elevated bilirubin R17 Calculus of common bile duct with obstruction K80.51 Osteoporosis M81.0 Pulmonary embolism I26.99 DVT (deep venous thrombosis) I82.409 Migraines G43.909 Cholelithiasis K80.20 Scleral icterus R17 High cholesterol E78.00 Past Surgical History Past Surgical History (Updated 01/07/25 @ 08:43 by Rosa Johnson RN) H/O mitral valve repair Z98.890 History of tonsillectomy Z90.89 S/P laparoscopic cholecystectomy Z90.49 523 S/P vasectomy Z98.52 Family History Summary Family History Grandfather Heart disease Mother Hypertension Brother Arthritis Grandfather CAD (coronary artery disease) Review of Systems Review of Systems Hints Review of Present Symptoms: Reports - (none) Pain Is Patient Pain Free?: Yes Risk Factor Assessment Vital Signs Respiratory Rate: 16 Pulse Ox: 94 Blood Pressure: 88/64 Pulse Pulse Rate: 84 Pulse Rhythm: Regular Blood Cholesterol/Lipids Total Cholesterol (mg/dL) Goal = less than 200 mg/dL: 139 HDL Cholesterol (mg/dL) Goal = less than 40 mg/dL: 43 LDL Cholesterol (mg/dL) Goal = less than 70 mg/dL: 80 Triglycerides (mg/dL) Goal = less than 150 mg/dL: 80 Diabetes Nutrition Referral for Diabetes: No Obesity Height: 5 ft 10 in Weight:: 197 lb Weight in Pounds: 197.0 lbs Body Mass Index (BMI): 28.3 Nutritional Referral for Obesity: No Physical Inactivity 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 Inactivity: 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) For Smoking Smoking Risk Guidelines For Dyslipidemia Dyslipidemia Risk Guidelines For Diabetes Mellitus Diabetes Risk Guidelines For Obesity/Overweight Obesity/Overweight Risk Guidelines For Hypertension Hypertension Risk Guidelines For Sedentary Lifestyle Sedentary Lifestyle Risk Guidelines For Depression Depression Risk Guidelines Family History Family History Grandfather Heart disease Mother Hypertension Brother Arthritis Grandfather CAD (coronary artery disease) Social History Smoking History Smoking Status: Never smoker Alcohol Use Alcohol Usage: Yes (holidays/special occasions only) Substance Abuse Hx Substance Use: No Occupation Occupation (List type of work in comments):: Employed Social Environment Status Marital Status: Current Living Arrangements Living Environment:: Family Children How many children do you have?: 2 Do any of your children live nearby?: Yes Safety Do you feel safe in your surroundings?: Yes Assistance Do you need any assistance at home?: No Nutrition Survey Nutrition Survey Instructions Scoring Instructions Nutrition Survey Initial: Have you lost >10 lbs over the past 2 months without trying?: No Are you following a special diet at home for diabetes, low fat, or low salt?: No Are you interested in meeting with a dietitian for help understanding your diet?: No Do you eat less than 3 meals a day?: No Do you eat fatty meats (montoya, sausage, ribs, etc), fried foods, desserts, large amounts of salad dressings, margarine, butter, or cheese most days?: Yes Do you have food allergies? [Enter types in comment field]: No Do you eat in restaurants more than 3 times a week?: No Do you season food with salt, seasoning salt, or garlic salt?: Yes ( a little) Do you used canned, boxed, frozen meals, or soups, seasoning packets?: No Total Score:: 2 Self-Efficacy 6-Item Scale Initial Assessment: We would like to know how confident you are in doing certain activities. Please select your confidence level for: Fatigue Select Number: 7 Physical Discomfort or Pain Select Number: 10 Emotional Distress Select Number: 10 Other Symptoms or Health Problems Select Number: 10 Different Tasks and Activities Select Number: 10 Medication Select Number: 10 Total Score:: 9
[2025-01-16 14:10] VITALS: BMI 28.3
[2025-01-16 14:17] VITALS: BP 88/64; PULSE 84; RESP 16; O2SAT 94
--- NOTE | 2025-01-16 14:23 | CR.ITP_ITS ---
Diagnosis General Information Admitting Diagnosis: Mitral Valve Repair Personal Learning Style:: Audio/Visual and Written Barriers to Learning: No Barriers Stage of change r/t lifestyle modifications:: Action Gave educational material for:: Treating Heart Disease, How The Heart Works, What it means to have Heart Disease, How Coronary Artery Disease is Diagnosed, Heart Procedures, What Heart Medications Do, Risk Factors & Modifications, Living an Active Life, Nutrition, Emotions & Heart Disease, Stress Management & Relaxation and Sleep Disorders & Heart Disease Education/Goals Cardiac Rehabilitation Goals Personal Goals: Initial Assessment: Improve energy level, Get back to work, or to resume activities faster and Improve muscle strength and endurance Scale for measuring improvement of personal goals Diagnosis & Disease Process Outcomes/Goals: Pt IDs own risk factors & lifestyle modifications by Session 10, Verbalizes symptoms of angina & response by session 3. and Pt independently manages Plan/Interventions: Assist Pt to ID & engage in lifestyle modification to reduce CVD risk, Instruct on individual risk factors, Review symptoms of angina & emergency actions and Review secondary diagnosis & identify educational needs. Safety Referral to Physical Therapy: No Referral to [facility] Case Management: No Fall Risk Assessed:: Yes Assistive Devices:: None Exercise - Initial Assessment Visit Date of Eval: 01/16/25 (initial evaluation) Mets: Pre-: >5 METS for 30 minutes by discharge and >7 METS for 30 minutes by discharge Physician Prescribed Exercise Modalities: Treadmill, Rower, Schwinn Airdyne AD-7, SciFit Stepper, SciFit Pro- II Ergometer and SciFit Lateral [employer] Frequency: 3x/week for 12 weeks [36 sessions] Intensity: 60-80% of age predicted maximum heart rate reserve Duration: 30 - 45 minutes METs - Progression 0.5-1.0 weekly:: 0.5-1.0 Current METSs:: 3 Target Heart Rate:: 99-115 Target RPE 12-16:: 12-16 EKG Type: Sinus Current Physical Activity or Exercising minutes: 30-45 Outcomes & Goals Goals:: Verbalizes understanding of THR, RPE & goal METS by session 6, Documents in home exercise log/reports 30 min aerobic 5 day/wk by DC and Demonstrates accurate pulse taking by DC Intervention & Plan Exercise Program Goals: Instruct on personal THR & RPE, Instruct on MET level & personal MET goal, Show patient to take own pulse /validate performance until accurate and Instruct on home exercise Physical Activity Home Exercise Physical Activity - Home Exercise: Safe Exercise, Warm-up, Self-monitoring, Cool-Down, Home Exercise > 30 min Daily and Sitting Time <3 hours/daily Outcomes & Goals Outcomes/Goals: Demonstrates correct Warm-up/exercise Cool-Down (S3) if = 2.5 METs, Verbalizes symptoms of exercise intolerance by Session 3 (S3) and Demonstrate safe equipment use (S3) & follows exercise prescrition (6) Intervention & Plan Plan/Intervention: Instruct warm-up & cool-down if exercising at > 2 METs, Instruct on symptoms of exercise intolerance & actions to take, Instruct & monitor on saf and Assess intial functional capacity & safety risk Nutrition - Initial Assessment Program Goals Nutrition Program Goals Patient has diagnosis of Hyperlipidemia (ICD E78)?: Yes Visit Date of Eval: 01/16/25 (initial evaluation) Cholesterol/Lipids (Other Core Measures) Triglycerides (mg/dL): 80 Total Cholesterol (mg/dL): 139 LDL Cholesterol (mg/dL): 80 HDL Cholesterol (mg/dL): 43 Lipid Medication: atorvastatin 10mg QHS Determine presence & major risk factors that modify LDL goal: Cigarette smoking, Hypertension or hypertensive medication, Low HDL cholesterol <40 mg/dL* and Age men > 45 years; women >/= 55 years Outcomes/Goals: Pt IDs own risk factors & lifestyle modifications by Session 10, Verbalizes symptoms of angina & response by session 3. and Pt independently manages Intervention/Plan: Advocate for lipid panel cholesterol medication if applicable, Instruct on personal lipid levels & lipid goals/NCEP guidelines and Instruct on cholesterol Referral to dietitian:: No Diabetes (Other Core Measures) Diabetes Type: Not Applicable Weight Mgt (Other Care) Not Applicable: No Height: 5 ft 10 in Weight:: 197 lb BMI: 28.3 BMI (Report if calculated above): 28 Diagnosis Overweight/Obesity BMI> 30% ICD-10 E66: No Diagnosis High BMI/Morbid Obesity BMI> 35% ICD-10 Z68: No Outcomes/Goals: Pt sets, maintains & shows weight loss goal & trend during rehab Intervention/Plan: Instruct on ideal BMI & set weight loss goal w/patient, Assist pt to ID & incorporate diet changes for weight loss by S9, Refer to Structured Weight Loss program as appropriate and Encourage goal of using 250- 300dcal per session for weight loss Healthy Eating Habits Will attend diet classes:: Yes Outcomes/Goals:: Consume diet rich in vegs,fruits,whole grain/high fiber ,fish,lean meat and Limit sat/trans fats,cholesterol & added salts & sugars Intervention/Plan:: Assess current eating habits Education Gave educational materials for:: Signs & symptoms of hypoglycemia, Signs & symptoms of hyperglycemia, Relate diabetes to coronary artery disease and Healthy eating Core - Initial Assessment Visit Date of Eval: 01/16/25 (initial evaluation) Medication Compliance Preventative Medication(s):: Aspirin, LORAINE inhibitor and Statin/lipid H/O mental health issues: depression, anxiety, or addiction?: No Doesn?t believe in the benefits of treatment?: No Believes medications are unnecessary or harmful?: No Has a concern about medication side effects?: No Expresses concern over the cost of medications?: No Outcomes/Goals: Verbalizes medications,desired effect & common side effects @ DC, Pt self-reports following medication regimen and Keeps card in wallet w/medications listed by DC Interventions/plans: Instruct on medication effects & side effects, Review medication list w/patient every two weeks and Instruct importance of taking meds as ordered & assist problem solving Tobacco Use Tobacco Use: Non-smoker Hypertension Hypertension Diagnosis:: Not Applicable [place] [employer] Hypertension Guidelines Tobacco Cessation Referral Smoking Cessation Referral:: No Education Schedule Given:: Yes Psychosocial - Initial Assess VIsit Date of Eval: 01/16/25 (initial evaluation) Not Applicable: No History of previous Mental disease:: No History of Emotional Disorders: None Target Goals Target Goals Psychosocial Test Tool Used:: PHQ-9 Questionnaire phq-9 Severity See PHQ-9 Score: 2 Referral to Behavioral Health PS - Interventions: Yes: Attend Stress Management Classes Outcomes/Goals: See list Psychosocial Outcomes/Goals:: ID's personal stressors & 2 strategies to manage stress by discharge Intervention/Plan: See List Interventions/Plan:: Assess stressors,coping strategies & signs of derpression on admission, Instruct/assist pt to develop coping & personal stress Mgt strategies, Refer to Behavioral Health if appropriate, Refer to Physician if appropriate, Instruct patient to recognize signs & symptoms of depression and Instruct patient to recog Patient Health Questionnaire PHQ-9 Screening Initial Assessment: 1. Little interest or pleasure in doing things: Several days 2. Feeling down, depressed, or hopeless: Not at all 3. Trouble falling or staying asleep, or sleeping too much: Not at all 4. Feeling tired or having little energy: Several days 5. Poor appetite or overeating: Not at all 6. Feeling bad about yourself -- or that you are a failure or have let yourself or your family down: Not at all 7. Trouble concentrating on things, such as reading the newspaper or watching television: Not at all 8. Moving or speaking so slowly that other people could have noticed. Or the opposite - being so fidgety or restless that you have been moving around a lot more than usual: Not at all 9. Thoughts that you would be better off , or of hurting yourself in some way: Not at all How difficult have these problems made it for you to do your work, take care of things at home, or get along with other people?: Not difficult at all Total Score: 2 PINKY-Q SV Test Statements CAD is a disease of the arteries in the heart: False Examples of risk factors for heart disease: True Angina is chest pain or discomfort: I Don't Know The benefits of resistance training include: True Eating more meat and dairy products: False Anti-platelet medications such as aspirin are important: True The only effective way to manage stress: False An exercise warm-up slowly increases heart rate: I Don't Know Prepared, processed foods usually have high sodium: True Depression is common after a heart attack: I Don't Know The statin medications lower cholesterol: True To control blood pressure, lower the amount of sodium: True If someone gets chest discomfort during walking: False Transfats are partially hydrogenated vegetable oils: False Sleep apnea that is not treated increases the risk: I Don't Know To control cholesterol, one should become a vegetarian: False Someone knows if he/she is exercising at the right level: I Don't Know Diabetes cannot be prevented with exercise & health eating: False Stress is a large risk for heart attack: True A diet that can help lower blood pressure is rich in: True Total Score Total Correct Responses: 14 Self-Efficacy 6-Item Scale Initial Assessment: We would like to know how confident you are in doing certain activities. Please select your confidence level for: Fatigue Select Number: 7 Physical Discomfort or Pain Select Number: 10 Emotional Distress Select Number: 10 Other Symptoms or Health Problems Select Number: 10 Different Tasks and Activities Select Number: 10 Medication Select Number: 10 Total Score:: 9 Nutrition Survey Nutrition Survey Instructions Scoring Instructions Nutrition Survey Initial: Have you lost >10 lbs over the past 2 months without trying?: No Are you following a special diet at home for diabetes, low fat, or low salt?: No Are you interested in meeting with a dietitian for help understanding your diet?: No Do you eat less than 3 meals a day?: No Do you eat fatty meats (montoya, sausage, ribs, etc), fried foods, desserts, large amounts of salad dressings, margarine, butter, or cheese most days?: Yes Do you have food allergies? [Enter types in comment field]: No Do you eat in restaurants more than 3 times a week?: No Do you season food with salt, seasoning salt, or garlic salt?: Yes (a little) Do you used canned, boxed, frozen meals, or soups, seasoning packets?: No Total Score:: 2 Exercise - 30-day Assessment Physician Prescribed Exercise Modalities: Treadmill, Rower, [employer] AD-7, SciFit Stepper, SciFit Pro- II Ergometer and SciFit Lateral [employer] Exercise - 60-day Assessment Physician Prescribed Exercise Modalities: Treadmill, Rower, [employer] AD-7, SciFit Stepper, SciFit Pro- II Ergometer and SciFit Lateral [employer] Exercise - 90-day Assessment Physician Prescribed Exercise Modalities: Treadmill, Rower, [employer] AD-7, SciFit Stepper, SciFit Pro- II Ergometer and SciFit Lateral [employer] Certified Project Manager Exercise - Final/Discharge Physician Prescribed Exercise Modalities: Treadmill, Rower, [employer] AD-7, SciFit Stepper, SciFit Pro- II Ergometer and SciFit Lateral [employer] Frequency: 3x/week for 12 weeks [36 sessions] Intensity: 60-80% of age predicted maximum heart rate reserve METs - Progression 0.5-1.0 weekly:: 0.5-1.0 Current METSs:: 3 Target Heart Rate:: 99-115 Nutrition - 30-Day Assessment Weight Mgt (Other Care) Height: 5 ft 10 in Weight:: 197 lb BMI: 28.3 BMI (Report if calculated above): 28 Nutrition - 60-Day Assessment Weight Mgt (Other Care) Height: 5 ft 10 in Weight:: 197 lb BMI: 28.3 BMI (Report if calculated above): 28 Psychosocial - 30-Day Assess Target Goals Target Goals Referral to Behavioral Health PS - Interventions: Yes: Attend Stress Management Classes Psychosocial - 60-Day Assess Target Goals Target Goals Referral to Behavioral Health PS - Interventions: Yes: Attend Stress Management Classes Psychosocial - 90-Day Assess Target Goals Target Goals Referral to Behavioral Health PS - Interventions: Yes: Attend Stress Management Classes Psychosocial - Final Assessmen Target Goals Target Goals Psychosocial Test phq-9 Severity See PHQ-9 Score: 2 Referral to Behavioral Health PS - Interventions: Yes: Attend Stress Management Classes Nutrition - 90-Day Assessment Weight Mgt (Other Care) Height: 5 ft 10 in Weight:: 197 lb BMI: 28.3 BMI (Report if calculated above): 28 Nutrition - Final Assessment Program Goals Patient has diagnosis of Hyperlipidemia (ICD E78)?: Yes Weight Mgt (Other Care) Height: 5 ft 10 in Weight:: 197 lb BMI: 28.3 BMI (Report if calculated above): 28
[2025-01-16 14:31] VITALS: BMI 28.0; BMI 28.3
== END | disposition home or self-care (01) ==
LOC: CR 13:45
PROVIDERS: PCP Family Medicine; Referring Provider Internal Medicine Cardiovascular Disease; Visit Provider Internal Medicine Cardiovascular Disease
DX: Z95.2 Presence of prosthetic heart valve (principal); I34.0 Nonrheumatic mitral (valve) insufficiency; E78.00 Pure hypercholesterolemia, unspecified; Z79.82 Long term (current) use of aspirin; Z86.718 Personal history of other venous thrombosis and embolism; Z86.711 Personal history of pulmonary embolism; Z79.899 Other long term (current) drug therapy; Z90.49 Acquired absence of other specified parts of digestive tract

== ENCOUNTER 2025-02-01 08:00 | Outpatient (RCR) | payer MEDICARE, SELFPAY ==
[2025-01-16 14:31] VITALS: BMI 28.3
== END 2025-02-17 23:59 ==
LOC: CR 08:00
PROVIDERS: PCP Family Medicine; Referring Provider Internal Medicine Cardiovascular Disease; Visit Provider Internal Medicine Cardiovascular Disease
DX: I34.1 Nonrheumatic mitral (valve) prolapse (principal); I34.0 Nonrheumatic mitral (valve) insufficiency; Z98.890 Other specified postprocedural states; E78.5 Hyperlipidemia, unspecified
CPT/HCPCS: 93798

== ENCOUNTER → 2025-02-08 | Outpatient (CLI) | payer MEDICARE, SELFPAY ==
[2025-01-16 14:31] VITALS: BMI 28.3
[2025-02-08 11:06] LABS: PSA,Total - Annual Screen 2.51 ng/mL (0.02-4.00)
== END | disposition home or self-care (01) ==
LOC: MFPLAB 09:40
PROVIDERS: PCP Family Medicine
DX: Z12.5 Encounter for screening for malignant neoplasm of prostate (principal)
CPT/HCPCS: 36415; 84153; G0103